=== PATIENT | female | born 1945 | race Caucasian/White ===

== ENCOUNTER 2018-02-27 04:05 | Emergency (ER) | payer MEDICARE ==
[2018-02-27] MEDS ORDERED: IPRATROPIUM/ALBUTEROL 0.5-2.5 MG/3 ML AMPUL NEB ONE (04:17)
--- NOTE | 2018-02-27 04:20 | ER Document Report ---
ED General - General Stated Complaint: SHORTNESS OF BREATH Time Seen by Provider: 02/27/18 04:16 Notes: Patient is a 72-year-old female who presents to the emergency department with a chief complaint of shortness of breath. She states that she developed shortness of breath today. She is a 3 pack a day smoker. According to her daughter, she does nothing but smoke and watch TV all day. When she developed shortness of breath this evening, they called to EMS, she was then taken to the hospital. EMS gave her albuterol and Atrovent for wheezing. The patient has a history of COPD. According to the patient's daughter, the patient has been smoking 3 packs a day of cigarettes nonstop for the past month. The patient states she does not plan on quitting. The patient also refuses to have an IV or labs drawn. - Related Data Allergies/Adverse Reactions: Penicillins Allergy (Verified 02/27/18 04:23) Sulfa (Sulfonamide Antibiotics) Allergy (Verified 02/27/18 04:23) Past Medical History - Social History Smoking Status: Current Every Day Smoker Frequency of alcohol use: None Drug Abuse: None Lives with: Family Family History: Reviewed & Not Pertinent Review of Systems - Review of Systems Notes: REVIEW OF SYSTEMS: CONSTITUTIONAL : Denies recent illness. Denies recent unintentional weight loss. Denies fever, chills, or sweats. EENT: Denies eye, ear, throat, or mouth pain, discharge, or symptoms. Denies nasal or sinus congestion. CARDIOVASCULAR: Denies chest pain. RESPIRATORY: See HPI GASTROINTESTINAL: Denies nausea, vomiting, and diarrhea. Denies abdominal pain. Denies constipation. GENITOURINARY: Denies difficulty urinating, burning, blood in urine, urgency or frequency. MUSCULOSKELETAL: Denies neck and back pain. Denies joint pain or swelling. SKIN: Denies rash, itchiness, or lesions HEMATOLOGIC : Denies easy bruising or bleeding. LYMPHATIC: Denies swollen, painful, enlarged glands. NEUROLOGICAL: Denies no numbness or tingling denies weakness. Denies headache. Denies altered mental status. Denies alteration in speech. PSYCHIATRIC: Denies stress, anxiety, alteration in sleep patterns, or depression. All other systems reviewed and negative. Physical Exam - Vital signs Vitals: Temp Pulse BP Pulse Ox 98.2 F 102 H 144/86 H 99 02/27/18 04:10 02/27/18 04:10 02/27/18 04:10 02/27/18 04:10 - Notes Notes: PHYSICAL EXAMINATION: GENERAL: Appears unkempt, smells of urine. HEAD: Normocephalic, atraumatic. EYES: PERRL, conjunctiva normal, all extraocular movements intact, sclera nonicteric ENT: Dry mucous membranes. NECK: Supple, no noticeable swelling, redness, rash. Normal range of motion. LUNGS: Equal breath sounds bilaterally and diminished to auscultation. Mild wheezes. No rales or rhonchi. CARDIOVASCULAR: S1-S2, regular rate, regular rhythm. Radial pulses 2+, normal. ABDOMEN: Normoactive bowel sounds. Soft, nontender, no guarding, no rebound tenderness, and no masses palpated. EXTREMITIES: Normal strength and range of motion, no pitting or edema. No cyanosis. NEUROLOGICAL: Moves all extremities upon command. Strength 5/5 in all extremities. PSYCH: Angry, non-cooperative. SKIN: Warm, dry. No rash, lesions, ulcerations noted. Normal skin turgor. Course - Re-evaluation Re-evalutation: 02/27/18 04:51 Patient's chest x-ray is normal at this time. The patient is very argumentative and not willing to cooperate. She was asked multiple times to place her breathing treatment in her mouth, and she began to argue saying that she did not want to. I have advised her that her workup will not be complete because she is refusing to have labs drawn and place an IV so she can receive additional medication. I also educated her multiple times in regards to smoking cessation, and she stated, "you do not think I have not heard that before." She also continued to state, "I am never going to quit smoking. And I am not going to be cutting back." Her daughter is the person who buys her cigarettes. Her daughter continues to state that the patient has sundowners and she sits in bed all day and smokes. I have advised her daughter that she needs to help her mother decrease the amount of cigarettes she smokes. Her daughter states, "if I do not buy my mother cigarettes, she will call the police and states she has been neglected and abused." The patient was taken off oxygen and her oxygen saturation was 94% on room air. I have advised both the patient and her daughter that she needs to see a primary care doctor to be placed back on her medications she was taking for COPD. The daughter is in agreement. Verbal discharge instructions were given to the patient. They verbalized understanding. They are stable for discharge. - Vital Signs Vital signs: Temp Pulse Resp BP Pulse Ox 98.2 F 102 H 144/86 H 99 02/27/18 04:10 02/27/18 04:10 02/27/18 04:10 02/27/18 04:10 Discharge - Discharge Clinical Impression: Difficulty breathing Condition: Stable Disposition: HOME, SELF-CARE Additional Instructions: You were seen today in the emergency department for difficulty breathing. Your difficulty breathing is caused by your smoking. Please either cut back on smoking or stop smoking altogether. Please see your primary care doctor to help you manage your health care. You have been given prednisone, a medication to help with your breathing. Please take the medication as prescribed. If you develop a fever greater than 100.4 F, have difficulty breathing again, or have any symptoms that are worrisome to you, please return to the emergency department. Prescriptions: Prednisone [Deltasone 20 mg Tablet] 3 tab PO DAILY 5 Days tablet
[2018-02-27 04:23] VITALS: BP 144/86
[2018-02-27] MEDS ORDERED: LIDOCAINE 2% INJ-PF (20 MG/ML) 10 ML AMPUL NEB ONE (04:36)
[2018-02-27] MEDS ORDERED: PREDNISONE 20 MG TABLET PO ONE (04:37)
--- NOTE | 2018-02-27 04:45 | RADIOLOGY REPORT (SQ) ---
EXAM DESCRIPTION: XR CHEST 1 VIEW COMPLETED DATE/TME: 02/27/2018 04:17 CLINICAL HISTORY: 72 years, Female, cough COMPARISON: None. NUMBER OF VIEWS: 1 TECHNIQUE: Upright chest LIMITATIONS: None. FINDINGS: The heart size is normal. Atheromatous change thoracic aorta. Osteopenia. No pneumothorax. Calcified granuloma right upper lobe. Lungs are otherwise clear IMPRESSION: No acute cardiopulmonary process copyright 2010 [employer]- All Rights Reserved
--- NOTE | 2018-02-27 06:52 | EKG REPORT ---
SEVERITY:- ABNORMAL ECG - SINUS TACHYCARDIA : Confirmed by: Mook Castillo 27-Feb-2018 06:51:51
== END 2018-02-27 05:25 | disposition home or self-care (01) ==
LOC: ER 04:05
DX: J44.9 Chronic obstructive pulmonary disease, unspecified (principal); R06.02 Shortness of breath; I49.1 Atrial premature depolarization; F17.210 Nicotine dependence, cigarettes, uncomplicated; Z88.0 Allergy status to penicillin; Z88.2 Allergy status to sulfonamides
CPT/HCPCS: 93005; 94640 ×2; 99285; 71045; 93010; A9270 ×2; J3490; J7512; J7620

== ENCOUNTER 2018-03-05 09:57 | Inpatient (IN) | payer MEDICARE ==
[2018-03-05] MEDS ORDERED: IPRATROPIUM/ALBUTEROL 0.5-2.5 MG/3 ML AMPUL NEB ONE ×4 (10:10→13:44)
[2018-03-05] MEDS ORDERED: METHYLPREDNISOLONE INJ 125 MG/2 ML SDV IV ONE (10:16)
--- NOTE | 2018-03-05 10:22 | ER Document Report ---
ED General - General Chief Complaint: Breathing Difficulty Stated Complaint: DIFFICULTY BREATHING Time Seen by Provider: 03/05/18 10:03 Mode of Arrival: Medic Information source: Patient, Emergency Med Personnel Notes: 72-year-old female brought to the emergency department by EMS for shortness of breath. Patient has a history of COPD. She is not on home oxygen. She denies having an inhaler or nebulizer at home. Patient states that she smokes 4 packs a day. She does not want to stop smoking. She states that she smoked a pack of cigarettes around midnight and that is when the shortness of breath started. Denies chest pain, nausea, vomiting, diaphoresis, fever, chills, productive coug h. EMS called. When they arrived they state that she was at 86% on room air. They placed her on 6 L nasal cannula and the patient's oxygen saturation went to 96%. History of hypertension but is not on medication. Denies DM, hyperlipidemia, CAD, family history of CAD. Denies recent travel, calf p ain/swelling, history of DVT/PE, history of hormone use, history of malignancy. TRAVEL OUTSIDE OF THE [place] IN LAST 30 DAYS: No - HPI Onset: Other - 10 hours prior to arrival. Onset/Duration: Sudden Quality of pain: No pain Severity: None Pain Level: Denies Associated symptoms: None Exacerbated by: Denies Relieved by: Denies Similar symptoms previously: Yes Recently seen / treated by doctor: No - Related Data Allergies/Adverse Reactions: Penicillins Allergy (Verified 03/05/18 10:09) Sulfa (Sulfonamide Antibiotics) Allergy (Verified 03/05/18 10:09) Past Medical History - General Information source: Patient - Social History Smoking Status: Current Every Day Smoker Family History: Reviewed & Not Pertinent Pulmonary Medical History: Reports: Hx COPD Renal/ Medical History: Denies: Hx Peritoneal Dialysis Review of Systems - Review of Systems Constitutional: No symptoms reported EENT: No symptoms reported Cardiovascular: No symptoms reported Respiratory: Short of breath, Wheezing Gastrointestinal: No symptoms reported Genitourinary: No symptoms reported Female Genitourinary: No symptoms reported Musculoskeletal: No symptoms reported Skin: No symptoms reported Hematologic/Lymphatic: No symptoms reported Neurological/Psychological: No symptoms reported -: Yes All other systems reviewed and negative Physical Exam - Vital signs Vitals: Temp Pulse Ox 97.8 F 100 03/05/18 10:03 03/05/18 10:03 - Notes Notes: PHYSICAL EXAMINATION: GENERAL: Well-appearing, well-nourished and in no acute distress. HEAD: Atraumatic, normocephalic. EYES: Pupils equal round and reactive to light, extraocular movements intact, conjunctiva are normal. ENT: Nares patent, oropharynx clear without exudates. Moist mucous membranes. NECK: Normal range of motion, supple without lymphadenopathy LUNGS: Faint wheezing appreciated in the lung bases. HEART: Regular rate and rhythm without murmurs ABDOMEN: Soft, nontender, nondistended abdomen. No guarding, no rebound. No masses appreciated. Female : deferred Musculoskeletal: Normal range of motion, no pitting or edema. No cyanosis. NEUROLOGICAL: Cranial nerves grossly intact. Normal speech, normal gait. Normal sensory, motor exams PSYCH: Normal mood, normal affect. SKIN: Warm, Dry, normal turgor, no rashes or lesions noted. Course - Re-evaluation Re-evalutation: 03/05/18 10:23 EKG: Ventricular rate 68, WA interval 168, QRS duration 96, QTc 473, sinus rhythm. No ST segment elevation or depression. 03/05/18 14:17 Patient has history of dementia per daughter. Patient being difficulty and refusing labs/imaging. Daughter came to the ED. Labs and imaging obtained. D- dimer elevated. CTA chest ordered. Troponin is negative. Patient's white blood cell count is 12.8. CT of the chest shows diffuse nodular infiltrates. Patient continues to sat around 88% on room air. She does not have any home oxygen, nebulizer machine, albuterol inhaler. She does not see a family physician. Patient is agreeable with admission. I spoke with the hospitalist, Dr. Sommers. He's agreeable with admission. Daughter denies any recent antibiotics or admissions. I started the patient on levofloxacin for the lung infiltrates. - Vital Signs Vital signs: Temp Pulse Resp BP Pulse Ox 98.5 F 87 26 H 163/99 H 90 L 03/05/18 13:33 03/05/18 13:33 03/05/18 13:33 03/05/18 13:33 03/05/18 14:00 - Laboratory Result Diagrams: 03/05/18 10:28 03/05/18 11:58 Laboratory results interpreted by me: 03/05/18 03/05/18 03/05/18 10:28 10:28 10:58 WBC 12.8 H RDW 15.0 H Plt Count 493 H Seg Neutrophils % 80.5 H Lymphocytes % 12.5 L Absolute Neutrophils 10.3 H D-Dimer 0.91 H Carbonic Acid 1.38 H ABG pCO2 46.0 H ABG pO2 68.7 L ABG HCO3 28.3 H ABG Total CO2 29.7 H ABG O2 Saturation 93.8 L Glucose 03/05/18 11:58 WBC RDW Plt Count Seg Neutrophils % Lymphocytes % Absolute Neutrophils D-Dimer Carbonic Acid ABG pCO2 ABG pO2 ABG HCO3 ABG Total CO2 ABG O2 Saturation Glucose 146 H Discharge - Discharge Clinical Impression: COPD (chronic obstructive pulmonary disease) Qualifiers: COPD type: unspecified COPD Qualified Code(s): J44.9 - Chronic obstructive pulmonary disease, unspecified Pneumonia Qualifiers: Pneumonia type: due to unspecified organism Laterality: unspecified laterality Lung location: unspecified part of lung Qualified Code(s): J18.9 - Pneumonia, unspecified organism Condition: Good Disposition: ADMITTED OBSERVATION Admitting Provider: Hospitalist Unit Admitted: Telemetry
[2018-03-05 10:55] LABS: ABSOLUTE BASOPHILS # (AUTO) 0.1 10^3/uL (0.0-0.2); ABSOLUTE EOSINOPHILS # (AUTO) 0.1 10^3/uL (0.0-0.6); ABSOLUTE LYMPHOCYTES (AUTO) 1.6 10^3/uL (0.5-4.7); ABSOLUTE MONOCYTES (AUTO) 0.7 10^3/uL (0.1-1.4); ABSOLUTE NEUT (AUTO) 10.3 10^3/uL (1.7-8.2); BASOPHILS % (AUTO) 0.8 % (0-2); EOSINOPHILS % (AUTO) 0.6 % (0-6); HEMATOCRIT 40.6 % (36.0-47.0); HEMOGLOBIN 13.7 g/dL (12.0-15.5); LYMPHOCYTES % (AUTO) 12.5 % (13-45); MEAN CORPUSCULAR HEMOGLOBIN 28.4 pg (27.0-33.4); MEAN CORPUSCULAR HGB CONC 33.8 g/dL (32.0-36.0); MEAN CORPUSCULAR VOLUME 84 fl (80-97); MONOCYTES % (AUTO) 5.6 % (3-13); PLATELET COUNT 493 10^3/uL (150-450); RED BLOOD COUNT 4.84 10^6/uL (3.72-5.28); SEGMENTED NEUTROPHILS % (AUTO) 80.5 % (42-78); TOTAL CELLS COUNTED % (AUTO) 100 %; WHITE BLOOD COUNT 12.8 10^3/uL (4.0-10.5)
--- NOTE | 2018-03-05 11:05 | RADIOLOGY REPORT (SQ) ---
EXAM DESCRIPTION: CHEST SINGLE VIEW COMPLETED DATE/TIME: 03/05/2018 10:50 am REASON FOR STUDY: shortness of breath COMPARISON: 02/27/2018. EXAM PARAMETERS: NUMBER OF VIEWS: One view. TECHNIQUE: Single frontal radiographic view of the chest acquired. RADIATION DOSE: NA LIMITATIONS: None. FINDINGS: LUNGS AND PLEURA: Prominence of interstitial markings in lung base suggest chronic interst itial change. MEDIASTINUM AND HILAR STRUCTURES: No masses. Contour normal. HEART AND VASCULAR STRUCTURES: Normal heart size and aortic atherosclerosis. BONES: No acute findings. HARDWARE: None in the chest. OTHER: No other significant finding. IMPRESSION: NO ACUTE DISEASE. TECHNICAL DOCUMENTATION: JOB ID: [id number] SC-[id number] 2010 [employer]- All Rights Reserved Reading location - IP/workstation name: [email or web address]
[2018-03-05 11:20] LABS: ARTERIAL BLOOD H2CO3 1.38 mmol/L (1.05-1.35); ARTERIAL BLOOD HCO3 28.3 mmol/L (20-24); ARTERIAL BLOOD O2 SATURATION 93.8 % (94-98); ARTERIAL BLOOD PH 7.41 (7.35-7.45); ARTERIAL BLOOD PO2 68.7 mmHg (80-100); ARTERIAL BLOOD TOTAL CO2 29.7 mmol/L (21-25)
[2018-03-05 11:21] LABS: ARTERIAL BLOOD FIO2 4L
[2018-03-05 12:36] LABS: ALANINE AMINOTRANSFERASE 22 U/L (9-52); ALBUMIN 3.8 g/dL (3.5-5.0); ALKALINE PHOSPHATASE 100 U/L (38-126); ANION GAP 9 (5-19); ASPARTATE AMINO TRANSFERASE 19 U/L (14-36); BILIRUBIN,DIRECT 0.3 mg/dL (0.0-0.4); BILIRUBIN,TOTAL 0.5 mg/dL (0.2-1.3); BLOOD UREA NITROGEN 9 mg/dL (7-20); CALCIUM 9.5 mg/dL (8.4-10.2); CARBON DIOXIDE 28 mmol/L (22-30); CHLORIDE 103 mmol/L (98-107); GLUCOSE 146 mg/dL (75-110); SODIUM 139.8 mmol/L (137-145); TOTAL PROTEIN 6.5 g/dL (6.3-8.2)
--- NOTE | 2018-03-05 12:46 | EKG REPORT ---
SEVERITY:- BORDERLINE ECG - SINUS RHYTHM PROBABLE LEFT ATRIAL ABNORMALITY : Confirmed by: Delilah Parker MD 05-Mar-2018 12:44:44
[2018-03-05] MEDS ORDERED: LORAZEPAM INJ 2 MG/1 ML VIAL IV ONE (12:54)
[2018-03-05] MEDS ORDERED: LORAZEPAM INJ 2 MG/1 ML VIAL ONE (12:55)
--- NOTE | 2018-03-05 13:32 | RADIOLOGY REPORT (SQ) ---
EXAM DESCRIPTION: CTA CHEST COMPLETED DATE/TIME: 03/05/2018 1:06 pm REASON FOR STUDY: shortness of breath COMPARISON: Radiographs same date. TECHNIQUE: CT scan of the chest performed using helical scanning technique with dynamic intravenous contrast injection. Images reviewed with lung, soft tissue and bone windows. Reconstructed coronal and sagittal MPR images reviewed. Additional 3 dimensional post-processing performed to develop Maximal Intensity Projection images (NC P). All images stored on PACS. All CT scanners at this facility use dose modulation, iterative reconstruction, and/or weight based d osing when appropriate to reduce radiation dose to as low as reasonably achievable (ALARA). [facility]: Dose Right [facility]: CareDose [facility]: Dose Right [facility]: Teradose 4D [facility]: [employer] CONTRAST TYPE AND DOSE: contrast/concentration: Isovue 350.00 mg/ml; Total Contrast Delivered: 76.0 ml; Total Saline Delivered: 110.0 ml Contrast bolus optimized for the pulmonary arteries. Not diagnostic for the aorta. RENAL FUNCTION: Within acceptable limits. RADIATION DOSE: CT Rad equipment meets quality standard of care and radiation dose reduction techniq ues were employed. CTDIvol: 23.5 - 29.8 mGy. DLP: 920 mGy-cm. . LIMITATIONS: None. FINDINGS: LUNGS AND PLEURA: Mild areas of subsegmental atelectasis/ scar in the lingula and dependen t bilateral lower lobes. Trace pleural fluid. Faint nodular infiltrates in the lungs, most notable in the right upper lobe peripherally. Nodules measure 3 mm or less. AORTA AND GREAT VESSELS: Poorly assessed. Atherosclerotic without gross aneurysm. HEART: Cardiac enlargement without pericardial effusion. At least moderate coronary calcification. PULMONARY ARTERIES: No emboli visualized in the main pulmonary arteries or the segmental branches. HILAR AND MEDIASTINAL STRUCTURES: Small nodes without bulky adenopathy or clearly abnormally enlarged nodes. HARDWARE: None in the chest. UPPER ABDOMEN: 3.5 cm well-circumscribed left adrenal mass. Low Hounsfield units (below 10) suggesti ve of adenoma. There is also a small 1.4 cm right adrenal nodule. Hounsfield units are in the 30s, this lesion is indeterminate. THYROID AND OTHER SOFT TISSUES: No masses. No adenopathy. BONES: No acute or significant finding. 3D MIPS: Confirm above findings. OTHER: No other significant finding. IMPRESSION: 1. No pulmonary embolus. 2. Mild faint nodular infiltrates in the lungs, acuity and significance indeterminate. Followup imag ing over time may be warranted. This may represent atypical infection. 3. Adrenal masses. Left is probably an adenoma. Right is indeterminate. Non urgent follow-up dedic ated adrenal MRI may prove helpful. 4. Cardiomegaly. Trace pleural fluid. Pronounced Coronary calcification. COMMENT: Quality ID # [id number]: Final reports with documentation of one or more dose reduction techniques (e.g., Automated exposure control, adjustment of the mA and/or kV according to patient size, use of iterative reconstruction technique) TECHNICAL DOCUMENTATION: JOB ID: [id number] [employer]- All Rights Reserved Reading location - IP/workstation name: [email or web address]
[2018-03-05] MEDS ORDERED: LEVOFLOXACIN 750 MG/D5W RTU 750 MG/150 ML RTUPB IV ONE (13:47)
[2018-03-05] MEDS ORDERED: ACETAMINOPHEN 325 MG TABLET PO PRN (14:42)
[2018-03-05] MEDS ORDERED: ONDANSETRON HCL INJ/PF 4 MG/2 ML SDV IV PRN (14:42)
--- NOTE | 2018-03-05 14:42 | PDOC H&P ---
History of Present Illness History of Present Illness: BILL FERNANDEZ is a 72 year old female patient brought by her daughter with chief complaint of difficulty breathing and shortness of breath. It was a patient carries a diagnosis of COPD she has not been on any inhaler or nebulizer. Patient is a very heavy smoker and she smokes about 4 packs a day. When EMS seen her patient was hypoxic with O2 saturation of 86% and they put her on 6 L of oxygen and her O2 saturation picked up to 96. Her chest x-ray is negative but her CT scan reported as mild faint nodular infiltrates in the lungs, acuity and significance indeterminate. Patient has also renal masses and cardiomegaly. There is no report of fever, chills, chest pain, palpitation or diaphoresis she has mild dry cough. Past Medical History Cardiac Medical History: Reports: Hypertension Pulmonary Medical History: Reports: Chronic Obstructive Pulmonary Disease (COPD) Social History Smoking Status: Current Every Day Smoker - Advance Directive Resuscitation Status: Full Code Family History Family History: Reviewed & Not Pertinent Parental Family History Reviewed: Yes Children Family History Reviewed: Yes Sibling(s) Family History Reviewed.: Yes Medication/Allergy Home Medications: Prednisone [Deltasone 20 mg Tablet] 3 tab PO DAILY 5 Days tablet 02/27/18 Allergies/Adverse Reactions: Penicillins Allergy (Verified 03/05/18 10:09) Sulfa (Sulfonamide Antibiotics) Allergy (Verified 03/05/18 10:09) Review of Systems Constitutional: PRESENT: as per HPI Eyes: PRESENT: as per HPI Cardiovascular: PRESENT: as per HPI Respiratory: PRESENT: as per HPI Gastrointestinal: PRESENT: as per HPI Neurological: PRESENT: as per HPI Psychiatric: PRESENT: as per HPI Physical Exam Vital Signs: Temp Pulse Resp BP Pulse Ox 98.5 F 87 26 H 163/99 H 90 L 03/05/18 13:33 03/05/18 13:33 03/05/18 13:33 03/05/18 13:33 03/05/18 14:00 Intake & Output 03/04/18 03/05/18 03/06/18 06:59 06:59 06:59 Weight 81.647 kg General appearance: PRESENT: mild distress, obese Head exam: PRESENT: atraumatic, normocephalic Eye exam: PRESENT: conjunctiva pink Neck exam: ABSENT: carotid bruit, JVD, lymphadenopathy, thyromegaly Respiratory exam: PRESENT: crackles, wheezes Cardiovascular exam: PRESENT: RRR. ABSENT: diastolic murmur, rubs, systolic murmur GI/Abdominal exam: PRESENT: normal bowel sounds, soft. ABSENT: distended, guarding, mass, organolmegaly, rebound, tenderness Results Laboratory Results: 03/05/18 10:28 03/05/18 11:58 03/05/18 03/05/18 03/05/18 10:28 10:28 10:58 WBC 12.8 H RBC 4.84 Hgb 13.7 Hct 40.6 MCV 84 MCH 28.4 MCHC 33.8 RDW 15.0 H Plt Count 493 H Seg Neutrophils % 80.5 H Lymphocytes % 12.5 L Monocytes % 5.6 Eosinophils % 0.6 Basophils % 0.8 Absolute Neutrophils 10.3 H Absolute Lymphocytes 1.6 Absolute Monocytes 0.7 Absolute Eosinophils 0.1 Absolute Basophils 0.1 Carbonic Acid 1.38 H HCO3/H2CO3 Ratio 20:1 ABG pH 7.41 ABG pCO2 46.0 H ABG pO2 68.7 L ABG HCO3 28.3 H ABG O2 Saturation 93.8 L ABG Base Excess 3.0 FiO2 4L Sodium Cancelled Potassium Cancelled Chloride Cancelled Carbon Dioxide Cancelled Anion Gap Cancelled BUN Cancelled Creatinine Cancelled Est GFR ( Amer) Cancelled Est GFR (Non-Af Amer) Cancelled Glucose Cancelled Calcium Cancelled Total Bilirubin Cancelled AST Cancelled ALT Cancelled Alkaline Phosphatase Cancelled Total Protein Cancelled Albumin Cancelled 03/05/18 11:58 WBC RBC Hgb Hct MCV MCH MCHC RDW Plt Count Seg Neutrophils % Lymphocytes % Monocytes % Eosinophils % Basophils % Absolute Neutrophils Absolute Lymphocytes Absolute Monocytes Absolute Eosinophils Absolute Basophils Carbonic Acid HCO3/H2CO3 Ratio ABG pH ABG pCO2 ABG pO2 ABG HCO3 ABG O2 Saturation ABG Base Excess FiO2 Sodium 139.8 Potassium 4.0 Chloride 103 Carbon Dioxide 28 Anion Gap 9 BUN 9 Creatinine 0.61 Est GFR ( Amer) > 60 Est GFR (Non-Af Amer) > 60 Glucose 146 H Calcium 9.5 Total Bilirubin 0.5 AST 19 ALT 22 Alkaline Phosphatase 100 Total Protein 6.5 Albumin 3.8 03/05/18 03/05/18 10:28 11:58 Troponin I Cancelled < 0.012 Impressions: Chest X-Ray 03/05/18 10:16 IMPRESSION: NO ACUTE DISEASE. Chest/Abdomen CTA 03/05/18 11:21 IMPRESSION: 1. No pulmonary embolus. 2. Mild faint nodular infiltrates in the lungs, acuity and significance indeterminate. Followup imaging over time may be warranted. This may represent atypical infection. 3. Adrenal masses. Left is probably an adenoma. Right is indeterminate. Non urgent follow-up dedicated adrenal MRI may prove helpful. 4. Cardiomegaly. Trace pleural fluid. Pronounced Coronary calcification. Assessment & Plan - Diagnosis (1) Acute hypoxemic respiratory failure Is this a current diagnosis for this admission?: Yes Plan: We will put her on supplemental oxygen and intermittent BiPAP. (2) Pneumonia Qualifiers: Laterality: bilateral Is this a current diagnosis for this admission?: Yes Plan: CT scan of the lung revealed bilateral faint infiltrates and radiologist abraham ggested this may represent a typical infection. Patient has been started on Levaquin. (3) Acute exacerbation of chronic obstructive airways disease Is this a current diagnosis for this admission?: Yes Plan: Patient has been started on DuoNeb, supplemental oxygen, Solu-Medrol and antibiotics. (4) Current everyday smoker Is this a current diagnosis for this admission?: Yes Plan: Patient smokes 4 packs a day. She is advised to quit. Nicotine patch (5) Hypertension Qualifiers: Hypertension type: essential hypertension Qualified Code(s): I10 - Essential (primary) hypertension Is this a current diagnosis for this admission?: Yes Plan: Continue home medication (6) Obesity (BMI 30.0-34.9) Is this a current diagnosis for this admission?: Yes Plan: Lifestyle modification advised
[2018-03-05] MEDS ORDERED: NICOTINE 21 MG/24 HR PATCH.TD24 TD PRN (14:48)
[2018-03-05] MEDS ORDERED: GUAIFENESIN 600 MG TABLET.SA PO ONE (14:53)
[2018-03-05] MEDS ORDERED: LEVOFLOXACIN 750 MG/D5W RTU 750 MG/150 ML RTUPB IV SCH (15:00)
[2018-03-05] MEDS ORDERED: ENOXAPARIN SODIUM INJ 40 MG/0.4 ML DISP.SYRIN SUBCUT SCH (15:00)
[2018-03-05] MEDS ORDERED: IPRATROPIUM/ALBUTEROL 0.5-2.5 MG/3 ML AMPUL NEB SCH (20:00)
[2018-03-05 21:15] VITALS: BP 140/69
[2018-03-05] MEDS ORDERED: METHYLPREDNISOLONE INJ 125 MG/2 ML SDV IV SCH (22:00)
[2018-03-05] MEDS ORDERED: GUAIFENESIN 600 MG TABLET.SA PO SCH (22:00)
[2018-03-05] MEDS ORDERED: FAMOTIDINE 20 MG TABLET PO SCH (22:00)
--- NOTE | 2018-03-06 07:54 | Progress Note ---
Provider Note Provider Note: BILL FERNANDEZ is a 72 year old female patient brought by her daughter with chief complaint of difficulty breathing and shortness of breath. It was a patient carries a diagnosis of COPD she has not been on any inhaler or nebulizer. Patient has hypoxia with O2 saturation of 86%. She is admitted with impression of acute hypoxemic respiratory failure secondary to COPD exacerbation and has been started on supplemental oxygen, steroid and bronchodilators. Last night patient refused her medications and made herself AMA. Per nursing notes,pt decided that she wanted to leave ama after conversation with last nursing shift and myself. pt repeatedly screaming down the halls for coffee, cheeseburgers, cigarettes, and to go home. pt was advised on multiple occasions that smoking was not allowed, and she stated that she wanted to leave and go home so she could smoke. The daughter was called on 2 occasions by myself per patient request, and the daughter spoke to the patient about staying to finish treatment. The daughter stated that she "could not deal with her anymore, and wanted us to give her a nother chance to behave". I told the daughter that the patient wanted to leave ama, and that we could not hold her. I advised her that it was not based on her behavior. The patient was alert x3 and continuously reoriented to the quiet rules, food times, availability of food, and the use of a call singh. Dr. Alonso was called to alert him of the violent threats to myself, the consistent screaming down the hallway for specific food demands/cigarettes/outbursts, and refusal to wear monitors or stay in bed. Dr. Alonso advised me that the patient is alert and oriented and that she can leave if she wants. The pt had one iv antibiotic left for in the morning. Security was called to be present during the ama process due to verbal outbursts and threats against myself. Pt had her iv removed and the ama process was explained in front of the charge nurse and security. Her signature was obtained after she verbalized understanding. The house supervised was informed. Me, Sparkle, and security walked her to the lobby where we waited for her daughter to arrive. Pt stated that she just wanted a cigarette multiple times on the way down. After being cooperative on the trip down, the patient stated that she "was going to come back and kick my ass." security informed her not to threaten staff. She then proceeded to tell me that she had a cell phone and cigarettes and that I stole them. I informed her that she was using the hospital phone during the night, and that I thoroughly looked for her belongings before leaving. Sparkle then went back to double check, where no phone or other belongings were found. The daughter arrived at 2250 in a personal vehicle. When she pulled up and was asked are you Alyssa, she stated "yeah who else would I be". The patient then ambulated to the vehicle without assistance or sign of distress. The daughter asked where the patient's discharge paperwork, prescriptions, and oxygen were. I reminded the daughter that she left AMA, so prescriptions and paperwork are not given. She stated "well thanks for nothing" and they proceeded to drive off the property.
[2018-03-06] MEDS ORDERED: DOCUSATE SODIUM 100 MG CAPSULE PO SCH (10:00)
== END 2018-03-05 22:33 | disposition left against medical advice (07) | DRG 189 ==
LOC: ER 09:57 → EH 14:27 → OBSVTOIN 14:43 → 3W 16:02
PROVIDERS: ADMIT Internal Medicine; ATTEND Internal Medicine
DX: J96.01 Acute respiratory failure with hypoxia (principal); J18.9 Pneumonia, unspecified organism; J44.0 Chronic obstructive pulmonary disease with (acute) lower respiratory infection; J44.1 Chronic obstructive pulmonary disease with (acute) exacerbation; F17.210 Nicotine dependence, cigarettes, uncomplicated; I10 Essential (primary) hypertension; Z88.2 Allergy status to sulfonamides; Z88.0 Allergy status to penicillin; E66.9 Obesity, unspecified
CPT/HCPCS: 36415; 71045; 71275; 80053; 82803; 84484; 85025; 85379; 87040; 93005; 93010; 99285; J1956; J2060; J2930; J7620

== ENCOUNTER 2018-03-07 07:30 | Inpatient (IN) | payer MEDICARE ==
--- NOTE | 2018-03-07 07:35 | ER Document Report ---
ED General - General Stated Complaint: SHORTNESS OF BREATH Time Seen by Provider: 03/07/18 07:34 Notes: Patient is a 72-year-old female with COPD that presents to the emergency department for chief complaint of shortness of breath. Patient states that she was at home, and got progressively worse and more short of breath, to the point where she called EMS, per EMS records she was 80% on room air, provided supplemental oxygen which brought her up to the mid 90s, she has had a productive cough over the last few days as well, she was admitted to the hospital for the same symptoms, on the sixth of this month, but left AGAINST MEDICAL ADVICE, which she states was because she did not get her coffee. She states that she is willing to be readmitted to the hospital because she is feeling progressively more short of breath, she denies any associated chest pain, fevers, chills, night sweats, nausea, vomiting or abdominal pain. She denies any use of inhalers, states she ran out of them, she has not seen physicians in a long time. Past Medical History: COPD Past Surgical History: Cholecystectomy, hysterectomy Social History: Admits to smoking cigarettes daily, denies alcohol or drug use. Family History: Reviewed and noncontributory for presenting illness Allergies: Reviewed, see documented allergy list. REVIEW OF SYSTEMS: Other than noted above, the 12 point review of systems was reviewed with the patient and were negative, all pertinent findings are included in the HPI. PHYSICAL EXAMINATION: Vital signs reviewed, nursing noted reviewed. GENERAL: Elderly female, in mild respiratory distress HEAD: Atraumatic, normocephalic. EYES: Eyes appear normal, extraocular movements intact, sclera anicteric, conjunctiva are normal. ENT: nares patent, oropharynx clear without exudates. Moist mucous membranes. NECK: Normal range of motion, supple without lymphadenopathy LUNGS: Coarse lung sounds, diffuse wheezing noted throughout all lung wilkinson, d iminished air movement. Mild respiratory distress, with conversational dyspnea HEART: Regular rate and rhythm without murmurs ABDOMEN: Soft, nontender, normoactive bowel sounds. No rebound, guarding, or rigidity. No masses appreciated. EXTREMITIES: Nontender, good range of motion, no pitting or edema. NEUROLOGICAL: No focal neurological deficits. Moves all extremities spontaneously Motor and sensory grossly intact on exam. PSYCH: Agitated at times SKIN: Warm, Dry, normal turgor, no rashes or lesions noted on exposed skin TRAVEL OUTSIDE OF THE [place] IN LAST 30 DAYS: No - Related Data Allergies/Adverse Reactions: Penicillins Allergy (Verified 03/05/18 10:09) Sulfa (Sulfonamide Antibiotics) Allergy (Verified 03/05/18 10:09) Past Medical History - Social History Smoking Status: Current Every Day Smoker Family History: Reviewed & Not Pertinent - Past Medical History Cardiac Medical History: Reports: Hx Hypertension Pulmonary Medical History: Reports: Hx COPD Renal/ Medical History: Denies: Hx Peritoneal Dialysis Physical Exam - Vital signs Vitals: Temp 97.8 F 03/07/18 07:47 Course - Re-evaluation Re-evalutation: Patient seen and examined, vital signs reviewed, patient was noted to be hypoxic at 80% on room air by EMS, was placed on supplemental oxygen by 2 L and improved to the mid 90s, patient was having some increased work of breathing, and conversational dyspnea, but that seemed to improve over her ED course, her chest x-ray was unchanged from prior from 2 days ago, patient was noted to leave AMA in the hospital on her recent admission on the sixth, because she wanted coffee, and apparently was screaming at staff, and then left AGAINST MEDICAL ADVICE, her blood work was pending, and she was aggressively addressing nurses, asking for coffee again, I discussed with her, that we did not have coffee in the emergency department, and am waiting to have her blood work back to admit her to the hospital, and that she would need to wait before having any coffee, or she could have water at this time, patient adamantly stated she is addicted to coffee, and needs it now or she is leaving AGAINST MEDICAL ADVICE, I spent over 10 minutes with her in her room, trying to dissuade her otherwise, but she persistently stated that she wanted to leave and get coffee and that she could not wait any longer. I discussed with her, that she would likely from hypoxemia, if she left the hospital, patient stated that I was a "psychopath" and that she is leaving the hospital. Nursing was able to obtain a couple coffee for the patient, which calmed her down, and she stated that she would stay at this point, to be treated for her COPD exacerbation. She was more appropriate, and reasonable at this time. She has received DuoNeb breathing treatments, and Solu-Medrol IV. Case discussed with Dr. Zavala with the hospitalist group, who graciously sent with the patient under his service, for further evaluation and management, patient was agreeable. Laboratory 03/07/18 03/07/18 03/07/18 09:10 09:10 09:10 WBC 16.1 H RBC 4.67 Hgb 13.3 Hct 39.4 MCV 84 MCH 28.4 MCHC 33.7 RDW 15.3 H Plt Count 519 H Seg Neutrophils % 76.2 Lymphocytes % 17.3 Monocytes % 5.6 Eosinophils % 0.6 Basophils % 0.3 Absolute Neutrophils 12.3 H Absolute Lymphocytes 2.8 Absolute Monocytes 0.9 Absolute Eosinophils 0.1 Absolute Basophils 0.0 Sodium 140.6 Potassium 4.3 Chloride 105 Carbon Dioxide 28 Anion Gap 8 BUN 15 Creatinine 0.70 Est GFR ( Amer) > 60 Est GFR (Non-Af Amer) > 60 Glucose 119 H Calcium 9.2 Total Bilirubin 0.2 Direct Bilirubin 0.2 Neonat Total Bilirubin Not Reportable Neonat Direct Bilirubin Not Reportable Neonat Indirect Bili Not Reportable AST 19 ALT 25 Alkaline Phosphatase 82 Troponin I < 0.012 Total Protein 5.7 L Albumin 3.3 L Chest X-Ray 03/07/18 07:50 IMPRESSION: 1. Stable examination since the prior study dated 03/05/2018. No acute findings. - Vital Signs Vital signs: Temp Pulse Resp BP Pulse Ox 97.8 F 96 03/07/18 07:47 03/07/18 07:50 - Laboratory Result Diagrams: 03/07/18 09:10 03/07/18 09:10 Laboratory results interpreted by me: 03/07/18 03/07/18 09:10 09:10 WBC 16.1 H RDW 15.3 H Plt Count 519 H Absolute Neutrophils 12.3 H Glucose 119 H Total Protein 5.7 L Albumin 3.3 L - EKG Interpretation by Me Additional EKG results interpreted by me: EKG demonstrates sinus bradycardia with a ventricular rate of 57 bpm, normal axis, normal intervals, no evidence of acute ischemia in this EKG, this is compared with prior EKG from 03/05/2018, without significant change. Discharge - Discharge Clinical Impression: COPD with acute exacerbation, Hypoxia Condition: Stable Disposition: ADMITTED INPATIENT Admitting Provider: Hospitalist - Dr. Zavala Unit Admitted: Telemetry Additional Instructions: You are leaving AGAINST MEDICAL ADVICE, we encourage you to back to the emergency department as soon as possible to treat your lung condition. This is a life-threatening condition, that if not treated properly, will worsen, and will likely be fatal, as your oxygen levels may continue to drop. Referrals: SOULEYMANE AIKEN MD [COMMUNITY BASED STAFF] - Follow up tomorrow
[2018-03-07] MEDS ORDERED: IPRATROPIUM/ALBUTEROL 0.5-2.5 MG/3 ML AMPUL NEB ONE (07:55)
[2018-03-07] MEDS ORDERED: METHYLPREDNISOLONE INJ 125 MG/2 ML SDV IV ONE (07:56)
--- NOTE | 2018-03-07 08:20 | RADIOLOGY REPORT (SQ) ---
EXAM DESCRIPTION: CHEST SINGLE VIEW COMPLETED DATE/TIME: 03/07/2018 8:01 am REASON FOR STUDY: short of breath COMPARISON: 03/05/2018 EXAM PARAMETERS: NUMBER OF VIEWS: One view. TECHNIQUE: Single frontal radiographic view of the chest acquired. RADIATION DOSE: NA LIMITATIONS: None. FINDINGS: LUNGS AND PLEURA: No opacities, masses or pneumothorax. No pleural effusion. Small stable calcified granuloma right apex of the lung. MEDIASTINUM AND HILAR STRUCTURES: No masses. Contour normal. HEART AND VASCULAR STRUCTURES: Borderline cardiomegaly, stable finding. No evidence for failure. BONES: No acute findings. HARDWARE: None in the chest. OTHER: No other significant finding. IMPRESSION: 1. Stable examination since the prior study dated 03/05/2018. No acute findings. TECHNICAL DOCUMENTATION: JOB ID: [id number] [employer]- All Rights Reserved Reading location - IP/workstation name: [email or web address]
[2018-03-07 09:34] LABS: ABSOLUTE EOSINOPHILS # (AUTO) 0.1 10^3/uL (0.0-0.6); ABSOLUTE LYMPHOCYTES (AUTO) 2.8 10^3/uL (0.5-4.7); ABSOLUTE MONOCYTES (AUTO) 0.9 10^3/uL (0.1-1.4); ABSOLUTE NEUT (AUTO) 12.3 10^3/uL (1.7-8.2); BASOPHILS % (AUTO) 0.3 % (0-2); EOSINOPHILS % (AUTO) 0.6 % (0-6); HEMATOCRIT 39.4 % (36.0-47.0); HEMOGLOBIN 13.3 g/dL (12.0-15.5); LYMPHOCYTES % (AUTO) 17.3 % (13-45); MEAN CORPUSCULAR HEMOGLOBIN 28.4 pg (27.0-33.4); MEAN CORPUSCULAR HGB CONC 33.7 g/dL (32.0-36.0); MEAN CORPUSCULAR VOLUME 84 fl (80-97); MONOCYTES % (AUTO) 5.6 % (3-13); PLATELET COUNT 519 10^3/uL (150-450); RED BLOOD COUNT 4.67 10^6/uL (3.72-5.28); RED CELL DISTRIBUTION WIDTH 15.3 % (11.5-14.0); SEGMENTED NEUTROPHILS % (AUTO) 76.2 % (42-78); TOTAL CELLS COUNTED % (AUTO) 100 %; WHITE BLOOD COUNT 16.1 10^3/uL (4.0-10.5)
[2018-03-07 09:58] LABS: ALANINE AMINOTRANSFERASE 25 U/L (9-52); ALBUMIN 3.3 g/dL (3.5-5.0); ALKALINE PHOSPHATASE 82 U/L (38-126); ANION GAP 8 (5-19); ASPARTATE AMINO TRANSFERASE 19 U/L (14-36); BILIRUBIN,DIRECT 0.2 mg/dL (0.0-0.4); BILIRUBIN,TOTAL 0.2 mg/dL (0.2-1.3); BLOOD UREA NITROGEN 15 mg/dL (7-20); CALCIUM 9.2 mg/dL (8.4-10.2); CARBON DIOXIDE 28 mmol/L (22-30); CHLORIDE 105 mmol/L (98-107); GLUCOSE 119 mg/dL (75-110); POTASSIUM 4.3 mmol/L (3.6-5.0); SODIUM 140.6 mmol/L (137-145); TOTAL PROTEIN 5.7 g/dL (6.3-8.2)
[2018-03-07] MEDS ORDERED: NICOTINE 21 MG/24 HR PATCH.TD24 TD ONE (10:21)
[2018-03-07] MEDS ORDERED: HALOPERIDOL LACTATE INJ 5 MG/1 ML VIAL IM ONE (11:10)
[2018-03-07] MEDS ORDERED: ZIPRASIDONE MESYLATE INJ/PF 20 MG SDV IM ONE (11:33)
--- NOTE | 2018-03-07 12:59 | EKG REPORT ---
SEVERITY:- BORDERLINE ECG - SINUS RHYTHM BORDERLINE R WAVE PROGRESSION, ANTERIOR LEADS : Confirmed by: Jose Miguel Carrillo MD 07-Mar-2018 12:58:49
[2018-03-07 13:45] LABS: ARTERIAL BLOOD BASE EXCESS -0.1 mmol/L; ARTERIAL BLOOD H2CO3 1.23 mmol/L (1.05-1.35); ARTERIAL BLOOD HCO3 24.6 mmol/L (20-24); ARTERIAL BLOOD O2 SATURATION 93.1 % (94-98); ARTERIAL BLOOD PCO2 40.7 mmHg (35-45); ARTERIAL BLOOD PO2 66.1 mmHg (80-100); ARTERIAL BLOOD TOTAL CO2 25.9 mmol/L (21-25)
[2018-03-07 13:46] LABS: ARTERIAL BLOOD FIO2 ROOM AIR
[2018-03-07] MEDS: HEPARIN SOD (PORCINE) 5,000 UNIT/ML 1 ML SYRINGE SUBCUT SCH ×2 (14:24→23:18)
--- NOTE | 2018-03-07 18:37 | PDOC H&P ---
History of Present Illness Admission Date/PCP: 03/07/18 10:41 History of Present Illness: BILL FERNANDEZ is a 72 year old female who left from this facility AGAINST MEDICAL ADVICE yesterday after having been admitted for an acute exacerbation of COPD. Today she was apparently brought in by her daughter who was not in the room whenever I came to see the patient. The patient says that she started getting short of breath last night when she was hanging some curtains, and then she sat down and smoked a cigarette and drank a cup of coffee and began to feel better. She is not quite sure how she got here this morning or why she is here. The ER provider told me that she looked pretty bad when she first came in, and was visibly short of breath, and got some steroids and nebulizer treatment and her symptoms improved. Apparently she was hypoxic when she first came in but when I saw her she was on room air and speaking in complete sentences sitting up on the side of the bed and talking to someone on the telephone, or at least that is what she made it appears she was doing. She would not let anyone put a pulse oximeter or a pvc monitor on her. I asked her if she had been in the hospital recently and she said no. I asked her again later on if she had been in the hospital in the past couple of weeks and she said no. Patient came here, according to our records, on February 27, and then came back in a few days later when she was admitted for COPD exacerbation. Past Medical History Cardiac Medical History: Reports: Hypertension Pulmonary Medical History: Reports: Chronic Obstructive Pulmonary Disease (COPD) Social History Smoking Status: Current Every Day Smoker Frequency of Alcohol Use: None Hx Recreational Drug Use: No Drugs: None Hx Prescription Drug Abuse: No Family History Family History: Reviewed & Not Pertinent Parental Family History Reviewed: No - Patient could not remember Children Family History Reviewed: No - Patient did not recall anything Sibling(s) Family History Reviewed.: No - Noncontributory Medication/Allergy Home Medications: No Home Medications 03/07/18 Allergies/Adverse Reactions: Penicillins Allergy (Verified 03/05/18 10:09) Sulfa (Sulfonamide Antibiotics) Allergy (Verified 03/05/18 10:09) Review of Systems All systems: reviewed and no additional remarkable complaints except as stated - 10 point review of systems was conducted with the patient was negative except as noted above, but the reliability of it is somewhat suspect Physical Exam Vital Signs: Temp Pulse Resp BP Pulse Ox 97.8 F 84 19 144/68 H 93 03/07/18 07:47 03/07/18 11:19 03/07/18 16:03 03/07/18 16:03 03/07/18 16:03 Intake & Output 03/06/18 03/07/18 03/08/18 06:59 06:59 06:59 Weight 97.1 kg General appearance: PRESENT: no acute distress, cooperative, disheveled, morbidly obese Head exam: PRESENT: atraumatic, normocephalic Eye exam: PRESENT: EOMI, PERRLA. ABSENT: conjunctival injection, nystagmus, scleral icterus Ear exam: PRESENT: normal external ear exam Mouth exam: PRESENT: dry mucosa, tongue midline Teeth exam: PRESENT: poor dentation Neck exam: PRESENT: full ROM. ABSENT: carotid bruit, JVD, lymphadenopathy, meningismus, tenderness, thyromegaly Respiratory exam: PRESENT: decreased breath sounds, symmetrical, unlabored. ABSENT: accessory muscle use, prolonged expiratory phas, rales, rhonchi, ta chypnea, wheezes Cardiovascular exam: PRESENT: RRR, +S1, +S2 Vascular exam: PRESENT: normal capillary refill GI/Abdominal exam: PRESENT: normal bowel sounds, soft. ABSENT: distended, guarding, rebound, tenderness Extremities exam: ABSENT: clubbing, pedal edema Musculoskeletal exam: PRESENT: normal inspection. ABSENT: deformity Neurological exam: PRESENT: alert, awake, oriented to person, oriented to place, CN II-XII grossly intact - She would not cooperate with all aspects of the exam, but she did not appear to have any focal or lateralizing deficits. ABSENT: oriented to situation Psychiatric exam: PRESENT: appropriate affect - She seemed a bit paranoid, normal mood Skin exam: PRESENT: dry, warm Results Laboratory Results: 03/07/18 09:10 03/07/18 09:10 03/07/18 03/07/18 03/07/18 09:10 09:10 13:30 WBC 16.1 H RBC 4.67 Hgb 13.3 Hct 39.4 MCV 84 MCH 28.4 MCHC 33.7 RDW 15.3 H Plt Count 519 H Seg Neutrophils % 76.2 Lymphocytes % 17.3 Monocytes % 5.6 Eosinophils % 0.6 Basophils % 0.3 Absolute Neutrophils 12.3 H Absolute Lymphocytes 2.8 Absolute Monocytes 0.9 Absolute Eosinophils 0.1 Absolute Basophils 0.0 Carbonic Acid 1.23 HCO3/H2CO3 Ratio 20:1 ABG pH 7.40 ABG pCO2 40.7 ABG pO2 66.1 L ABG HCO3 24.6 H ABG O2 Saturation 93.1 L ABG Base Excess -0.1 FiO2 ROOM AIR Sodium 140.6 Potassium 4.3 Chloride 105 Carbon Dioxide 28 Anion Gap 8 BUN 15 Creatinine 0.70 Est GFR ( Amer) > 60 Est GFR (Non-Af Amer) > 60 Glucose 119 H Calcium 9.2 Total Bilirubin 0.2 AST 19 ALT 25 Alkaline Phosphatase 82 Total Protein 5.7 L Albumin 3.3 L 03/07/18 09:10 Troponin I < 0.012 Impressions: Chest X-Ray 03/07/18 07:50 IMPRESSION: 1. Stable examination since the prior study dated 03/05/2018. No acute findings. Assessment & Plan - Diagnosis (1) COPD with acute exacerbation Is this a current diagnosis for this admission?: Yes Plan: This looks to actually be resolved. I will put her on some prednisone and some as needed nebulizer treatments. (2) Cognitive impairment Is this a current diagnosis for this admission?: Yes Plan: Either she was lying to me about her recent history regarding hospitalizations and thinking I would not know or find out about it, or she is cognitively impaired. I am going to watch her overnight and will confront her about this tomorrow. When she left the hospital yesterday, she was apparently very hostile and was threatening the provider at that time. - Time Time Spent: 50 to 70 Minutes
[2018-03-07] MEDS: IPRATROPIUM/ALBUTEROL 0.5-2.5 MG/3 ML AMPUL NEB PRN (22:24)
[2018-03-07] MEDS: METHYLPREDNISOLONE INJ 40 MG/1 ML SDV IV SCH (23:18)
[2018-03-08] MEDS: IPRATROPIUM/ALBUTEROL 0.5-2.5 MG/3 ML AMPUL NEB PRN (02:24)
[2018-03-08] MEDS: HEPARIN SOD (PORCINE) 5,000 UNIT/ML 1 ML SYRINGE SUBCUT SCH (05:12)
[2018-03-08] MEDS: METHYLPREDNISOLONE INJ 40 MG/1 ML SDV IV SCH (05:12)
[2018-03-08] MEDS ORDERED: PREDNISONE 20 MG TABLET PO SCH (10:00)
[2018-03-08 13:32] VITALS: BP 103/88
--- NOTE | 2018-03-08 19:37 | PDOC DISCHARGE SUMMARY ---
General - Admit/Disc Date/PCP Admission Date/Primary Care Provider: 03/07/18 10:41 Discharge Date: 03/08/18 - Discharge Diagnosis (1) COPD with acute exacerbation Is this a current diagnosis for this admission?: Yes Summary: Resolved fairly rapidly with steroids and bronchodilators. At one point she needed some supplemental oxygen that was for a short period of time when she got herself worked up. She was on room air with saturations in the low 90s at time of discharge. (2) Cognitive impairment Is this a current diagnosis for this admission?: Yes Summary: I spoke with her daughter today and her daughter says that she has had a degree of dementia for a few years. After speaking with her daughter for a while in the phone today, I believe the patient is probably at her baseline. - Additional Information Discharge Diet: Diabetic Discharge Activity: Supervised Activity Prescriptions: Albuterol Sulfate [Proair Hfa Inhalation Aerosol 8.5 gm Mdi] 1 puff IH Q4HP PRN #1 mdi PRN Reason: Shortness Of Breath Nicotine [Nicoderm 21 mg/24 Hr Transderm Patch] 1 patch TD DAILY #30 patch.[id number] Prednisone [Deltasone 20 mg Tablet] 40 mg PO DAILY #10 tablet Home Medications: Albuterol Sulfate [Proair Hfa Inhalation Aerosol 8.5 gm Mdi] 1 puff IH Q4HP PRN #1 mdi 03/08/18 Nicotine [Nicoderm 21 mg/24 Hr Transderm Patch] 1 patch TD DAILY #30 patch.[email or web address] 03/08/18 Prednisone [Deltasone 20 mg Tablet] 40 mg PO DAILY #10 tablet 03/08/18 History of Present Illness History of Present Illness: BILL FERNANDEZ is a 72 year old female who left from this facility AGAINST MEDICAL ADVICE yesterday after having been admitted for an acute exacerbation of COPD. Today she was apparently brought in by her daughter who was not in the room whenever I came to see the patient. The patient says that she started getting short of breath last night when she was hanging some curtains, and then she sat down and smoked a cigarette and drank a cup of coffee and began to feel better. She is not quite sure how she got here this morning or why she is here. The ER provider told me that she looked pretty bad when she first came in, and was visibly short of breath, and got some steroids and nebulizer treatment and her symptoms improved. Apparently she was hypoxic when she first came in but when I saw her she was on room air and speaking in complete sentences sitting up on the side of the bed and talking to someone on the telephone, or at least that is what she made it appears she was doing. She would not let anyone put a pulse oximeter or a radiation monitor on her. I asked her if she had been in the hospital recently and she said no. I asked her again later on if she had been in the hospital in the past couple of weeks and she said no. Patient came here, according to our records, on February 27, and then came back in a few days later when she was admitted for COPD exacerbation. Hospital Course Hospital Course: She had one episode overnight where her oxygen saturations dropped when she got up to walk to the bathroom and she got a little anxious. She was put on oxygen for a little while and got back in the bed and was feeling fine and then took the oxygen off. At rest her oxygen saturations are between 90-93%. When she ambulates, she probably does drop her SPO2, but this patient is not going to quit smoking, so it is not safe to be able to discharge her with oxygen because she would not reliably take it off while smoking. I discussed this with her daughter and her daughter agreed. This patient also has a degree of cognitive impairment which is chronic according to her daughter. She is most likely at her baseline after the discussion I had with her daughter today. She will complete a course of prednisone at home, and I wrote her prescription for a nicotine patch because she did express a desire to stop smoking, and also included an albuterol inhaler. Her labs and examination were reassuring and she was discharged in good condition. When the discharge process did not move fast enough for her liking, she started pitching a fit and was throwing stuff into the hallway. Physical Exam Vital Signs: Temp Pulse Resp BP Pulse Ox 97.9 F 84 16 103/88 H 92 03/08/18 13:30 03/08/18 13:30 03/08/18 13:30 03/08/18 13:30 03/08/18 13:30 Intake & Output 03/07/18 03/08/18 03/09/18 06:59 06:59 06:59 Intake Total 600 Balance 600 Weight 89.2 kg General appearance: PRESENT: no acute distress, cooperative, disheveled, morbidly obese Respiratory exam: PRESENT: decreased breath sounds, symmetrical, unlabored. ABSENT: accessory muscle use, prolonged expiratory phas, rales, rhonchi, tachypnea, wheezes Cardiovascular exam: PRESENT: RRR, +S1, +S2 Vascular exam: PRESENT: normal capillary refill GI/Abdominal exam: PRESENT: normal bowel sounds, soft. ABSENT: distended, guarding, rebound, tenderness Extremities exam: ABSENT: clubbing, pedal edema Musculoskeletal exam: PRESENT: normal inspection. ABSENT: deformity Neurological exam: PRESENT: alert, awake, oriented to person, oriented to place. ABSENT: oriented to situation Psychiatric exam: PRESENT: appropriate affect - She seemed a bit paranoid, normal mood Skin exam: PRESENT: dry, warm Results Laboratory Results: 03/07/18 09:10 03/07/18 09:10 03/07/18 09:10 Troponin I < 0.012 Impressions: Chest X-Ray 03/07/18 07:50 IMPRESSION: 1. Stable examination since the prior study dated 03/05/2018. No acute findings. Qualifiers - * PATIENT BEING DISCHARGED WITH ANY OF THE FOLLOWING DIAGNOSIS: No
== END 2018-03-08 13:52 | disposition home or self-care (01) | DRG 192 ==
LOC: ER 07:30 → EH 10:41 → 5 17:43
PROVIDERS: ADMIT Internal Medicine; ATTEND Internal Medicine
DX: J44.1 Chronic obstructive pulmonary disease with (acute) exacerbation (principal); I10 Essential (primary) hypertension; F03.90 Unspecified dementia, unspecified severity, without behavioral disturbance, psychotic disturbance, mood disturbance, and anxiety; F17.210 Nicotine dependence, cigarettes, uncomplicated
CPT/HCPCS: 36415; 36600; 71045; 80053; 82803; 84484; 85025; 93005; 93010; 94640; 96374; 99285; J1630; J1644; J2920; J2930; J3486; J7512; J7620

== ENCOUNTER 2018-03-15 03:16 | Inpatient (IN) | payer MEDICARE ==
[2018-03-15] MEDS ORDERED: IPRATROPIUM/ALBUTEROL 0.5-2.5 MG/3 ML AMPUL NEB ONE (03:40)
[2018-03-15] MEDS ORDERED: METHYLPREDNISOLONE INJ 125 MG/2 ML SDV IV ONE (03:40)
[2018-03-15] MEDS ORDERED: ADENOSINE INJ/PF 6 MG/2 ML SDV IV ONE (03:48)
[2018-03-15] MEDS ORDERED: AMIODARONE HCL INJ 150 MG/3 ML VIAL IV ONE ×2 (03:52→04:01)
[2018-03-15] MEDS ORDERED: AMIODARONE HCL 150 MG in DEXTROSE 5%-WATER 100 ML IV ONE (03:54)
[2018-03-15] MEDS ORDERED: DEXTROSE 5%-WATER 500 ML with AMIODARONE HCL 900 MG IV PRN ×2 (03:54)
--- NOTE | 2018-03-15 03:56 | ER Document Report ---
Addendum entered and electronically signed by CAMMIE FISH PA-C 03/15/18 06:14: Physical Exam Vital Signs: Temp Pulse Resp BP Pulse Ox 98.0 F 18 131/83 H 97 03/15/18 03:36 03/15/18 06:00 03/15/18 04:02 03/15/18 06:00 Intake & Output 03/13/18 03/14/18 03/15/18 06:59 06:59 06:59 Intake Total 100 Balance 100 Weight 83.1 kg Physical Exam: GENERAL: Alert, interacts well. No acute distress. HEAD: Normocephalic, atraumatic. EYES: Pupils equal, round, and reactive to light. Extraocular movements intact. ENT: Oral mucosa moist, tongue midline. NECK: Full range of motion. Supple. Trachea midline. LUNGS: Clear to auscultation bilaterally apices, no wheezes, rales, or rhonchi. Diminished bilateral bases. No respiratory distress, speaking in full sentences. HEART: Irregular rate and rhythm. No murmur ABDOMEN: Obese soft, non-tender. Non-distended. Bowel sounds present in all 4 quadrants. EXTREMITIES: Moves all 4 extremities spontaneously. No edema, normal radial and dorsalis pedis pulses bilaterally. No cyanosis. BACK: no cervical, thoracic, lumbar midline tenderness. No saddle anesthesia, normal distal neurovascular exam. NEUROLOGICAL: Alert and unable to tell staff the current date or president. Cranial nerves II through XII grossly intact PSYCH: Normal affect, normal mood. SKIN: Warm, dry, normal turgor. No rashes or lesions noted. Addendum entered and electronically signed by CAMMIE FISH PA-C 03/15/18 06:12: Review of systems Constitutional: No symptoms reported EENT: No symptoms reported Cardiovascular: denies: Chest pain Respiratory: Short of breath Gastrointestinal: No symptoms reported Geniturinary: No symptoms reported Female Genitourinary: No symptoms reported Musculoskeltal: No symptoms reported Skin: No symptoms reported Hematologic/Lymphatic: No symptoms reported Neurological/Psychological: No symptoms reported Addendum entered and electronically signed by CAMMIE FISH PA-C 03/15/18 06:10: ED Respiratory Problem - General Chief Complaint: Shortness Of Breath Stated Complaint: TROUBLE BREATHING Time Seen by Provider: 03/15/18 03:30 Notes: Patient is a 72-year-old female presents to the emergency department via EMS for generalized shortness of breath. Patient was noted to have been recently discharged from this facility for his COPD exacerbation. Patient has had 2 admissions recently 1 where the patient left AGAINST MEDICAL ADVICE. Patient states this evening she was at home when she all of a sudden developed a sudden shortness of breath. Patient denies any chest discomfort, nausea, vomiting, dizziness. Patient initially states she has no medical problems and is currently feeling very well. Patient states she has no shortness of breath or chest pain at this time. States, "just let me sleep here a little." Patient also states she has no medical problems and takes no medications. Patient was brought into the emergency department via EMS, there is no family members to discuss patient presentation or past medical history with. EMS has no further information for staff. In reviewing past patient charts it is noted that she has a history of dementia. She does have a history of COPD with continued cigarette smoking. TRAVEL OUTSIDE OF THE [place] IN LAST 30 DAYS: No - Related Data Allergies/Adverse Reactions: Penicillins Allergy (Verified 03/05/18 10:09) Sulfa (Sulfonamide Antibiotics) Allergy (Verified 03/05/18 10:09) Addendum entered and electronically signed by GISELA VIDAL DO 03/15/18 05:16: Discharge - Discharge Clinical Impression: SVT (supraventricular tachycardia), V-tach Dyspnea Qualifiers: Dyspnea type: unspecified Qualified Code(s): R06.00 - Dyspnea, unspecified Condition: Stable Disposition: ADMITTED OBSERVATION Admitting Provider: Hospitalist Unit Admitted: IMCU Addendum entered and electronically signed by GISELA VIDAL DO 03/15/18 05:15: Course - Re-evaluation Re-evalutation: 03/15/18 05:14 Patient did not have any further episodes of SVT or V. tach after the full infusion of amiodarone was completed. She is resting comfortably and is asymptomatic when she is not having these meals. I suspect that is why she felt unwell coming in was because of the arrhythmias that she was having. Her troponin is not concerning elevated. Her white blood cell count is just slightly elevated which could be due to recent treatment steroids. I feel that she is appropriate for admission and observation. I did speak with the hospitalist, Dr. Alonso, who agrees to evaluate the patient for admission. Dictation of this chart was performed using voice recognition software; therefore, there may be some unintended grammatical errors. - Laboratory Result Diagrams: 03/15/18 03:27 03/15/18 03:27 Laboratory results interpreted by me: 03/15/18 03/15/18 03:27 03:27 WBC 14.7 H RDW 15.8 H Absolute Neutrophils 10.3 H Glucose 125 H AST 41 H Original Note: ED Respiratory Problem - General TRAVEL OUTSIDE OF THE [place] IN LAST 30 DAYS: No <CAMMIE FISH - Last Filed: 03/15/18 03:56> <GISELA VIDAL - Last Filed: 03/15/18 03:58> - General Chief Complaint: Shortness Of Breath Stated Complaint: TROUBLE BREATHING Time Seen by Provider: 03/15/18 03:30 - Related Data Allergies/Adverse Reactions: Penicillins Allergy (Verified 03/05/18 10:09) Sulfa (Sulfonamide Antibiotics) Allergy (Verified 03/05/18 10:09) Past Medical History - Social History Smoking Status: Current Every Day Smoker Family History: Reviewed & Not Pertinent Patient has suicidal ideation: No Patient has homicidal ideation: No - Past Medical History Cardiac Medical History: Reports: Hx Hypertension Pulmonary Medical History: Reports: Hx COPD Renal/ Medical History: Denies: Hx Peritoneal Dialysis Psychiatric Medical History: Reports: Hx Depression <CAMMIE FISH - Last Filed: 03/15/18 03:56> Course - Laboratory Result Diagrams: 03/15/18 03:27 03/15/18 03:27 <CAMMIE FISH - Last Filed: 03/15/18 03:56> - Laboratory Result Diagrams: 03/15/18 03:27 03/15/18 03:27 <GISELA VIDAL - Last Filed: 03/15/18 03:58> - Re-evaluation Re-evalutation: 03/15/18 03:56 Patient was initially seen by the physician administrative support assistant, Hailee Fish. Patient presents for difficulty breathing and is feeling unwell. While in the ER patient had approximately 10 beat run of V. tach followed by SVT. Went to bedside and the patient broke on her own is where pulled up adenosine. Patient then went back into SVT. When she is in SVT she will have occasional runs of V. tach. Patient then broke again out of the SVT on her own. Again EKG after SVT had broken and she is in sinus rhythm. I do not see any evidence of A. fib, MAT, or atrial flutter. I will give the patient a dose of amiodarone due to her recurrence of SVT with runs of V. tach. Blood work is pending. Patient clinically looks well at this time. Blood pressure stable. (GISELA VIDAL)
[2018-03-15 03:58] LABS: ABSOLUTE BASOPHILS # (AUTO) 0.1 10^3/uL (0.0-0.2); ABSOLUTE EOSINOPHILS # (AUTO) 0.2 10^3/uL (0.0-0.6); ABSOLUTE LYMPHOCYTES (AUTO) 3.2 10^3/uL (0.5-4.7); ABSOLUTE NEUT (AUTO) 10.3 10^3/uL (1.7-8.2); BASOPHILS % (AUTO) 0.6 % (0-2); EOSINOPHILS % (AUTO) 1.1 % (0-6); HEMATOCRIT 43.9 % (36.0-47.0); HEMOGLOBIN 14.6 g/dL (12.0-15.5); LYMPHOCYTES % (AUTO) 21.4 % (13-45); MEAN CORPUSCULAR HEMOGLOBIN 27.9 pg (27.0-33.4); MEAN CORPUSCULAR HGB CONC 33.2 g/dL (32.0-36.0); MEAN CORPUSCULAR VOLUME 84 fl (80-97); MONOCYTES % (AUTO) 6.8 % (3-13); PLATELET COUNT 387 10^3/uL (150-450); RED BLOOD COUNT 5.23 10^6/uL (3.72-5.28); RED CELL DISTRIBUTION WIDTH 15.8 % (11.5-14.0); SEGMENTED NEUTROPHILS % (AUTO) 70.1 % (42-78); TOTAL CELLS COUNTED % (AUTO) 100 %; WHITE BLOOD COUNT 14.7 10^3/uL (4.0-10.5)
[2018-03-15 04:03] LABS: ALANINE AMINOTRANSFERASE 22 U/L (9-52); ALBUMIN 3.7 g/dL (3.5-5.0); ALKALINE PHOSPHATASE 70 U/L (38-126); ANION GAP 5 (5-19); ASPARTATE AMINO TRANSFERASE 41 U/L (14-36); BILIRUBIN,DIRECT 0.3 mg/dL (0.0-0.4); BILIRUBIN,TOTAL 0.6 mg/dL (0.2-1.3); BLOOD UREA NITROGEN 15 mg/dL (7-20); CALCIUM 8.9 mg/dL (8.4-10.2); CARBON DIOXIDE 29 mmol/L (22-30); CHLORIDE 105 mmol/L (98-107); GLUCOSE 125 mg/dL (75-110); POTASSIUM 4.1 mmol/L (3.6-5.0); SODIUM 139.4 mmol/L (137-145); TOTAL PROTEIN 6.4 g/dL (6.3-8.2)
--- NOTE | 2018-03-15 04:53 | RADIOLOGY REPORT (SQ) ---
EXAM DESCRIPTION: XR CHEST 1 VIEW COMPLETED DATE/TME: 03/15/2018 04:22 CLINICAL HISTORY: 72 years, Female, SOB COMPARISON: March 07, 2018 NUMBER OF VIEWS: One TECHNIQUE: AP view of the chest LIMITATIONS: None. FINDINGS: The lungs are clear. There are no pleural abnormalities. The cardiac silhouette is enlarged but stable. Pulmonary vessels are normal. IMPRESSION: Mild cardiomegaly, unchanged from prior study. copyright 2010 [facility]- All Rights Reserved
[2018-03-15] MEDS ORDERED: IPRATROPIUM BROMIDE 0.02% NEB 0.5 MG/2.5 ML AMPUL NEB SCH (06:00)
[2018-03-15] MEDS ORDERED: HYDRALAZINE HCL INJ/PF 20 MG/1 ML SDV IV PRN (06:28)
[2018-03-15] MEDS ORDERED: CHLORPHENIRAMINE MALEATE 4 MG TABLET PO ONE (06:28)
--- NOTE | 2018-03-15 06:28 | PDOC H&P ---
History of Present Illness Admission Date/PCP: 03/15/18 05:24 Patient complains of: Shortness of breath History of Present Illness: BILL FERNANDEZ is a 72 year old female with a past medical history of COPD, chronic bronchitis, tobacco Dependence and dementia. Patient presents to the emergency department with shortness of breath and found to be in SVT with in termittent runs of V. tach. She is placed on amiodarone resulting in conversion to normal sinus rhythm. She denies chest pain nausea vomiting or diaphoresis. She has baseline dementia but socially appropriate however unable to recall details regarding recent medications or inhaler use. She has an unremarkable workup otherwise with exception to leukocytosis of 14 but is on prednisone. Past Medical History Cardiac Medical History: Reports: Hypertension Pulmonary Medical History: Reports: Chronic Obstructive Pulmonary Disease (COPD) Psychiatric Medical History: Reports: Dementia, Depression, Tobacco Dependency Social History Information Source: Patient, [facility] Records Lives with: Family Smoking Status: Current Every Day Smoker Frequency of Alcohol Use: None Hx Recreational Drug Use: No Drugs: None Hx Prescription Drug Abuse: No - Advance Directive Resuscitation Status: Full Code Family History Family History: Hypertension Parental Family History Reviewed: Yes Children Family History Reviewed: Yes Sibling(s) Family History Reviewed.: Yes Medication/Allergy Home Medications: Albuterol Sulfate [Proair Hfa Inhalation Aerosol 8.5 gm Mdi] 1 puff IH Q4HP PRN #1 mdi 03/08/18 Nicotine [Nicoderm 21 mg/24 Hr Transderm Patch] 1 patch TD DAILY #30 patch.[id number] 03/08/18 Prednisone [Deltasone 20 mg Tablet] 40 mg PO DAILY #10 tablet 03/08/18 Allergies/Adverse Reactions: Penicillins Allergy (Verified 03/05/18 10:09) Sulfa (Sulfonamide Antibiotics) Allergy (Verified 03/05/18 10:09) Review of Systems ROS unobtainable: Due to mental status Physical Exam Vital Signs: Temp Pulse Resp BP Pulse Ox 98.0 F 18 131/83 H 2 L 03/15/18 03:36 03/15/18 06:00 03/15/18 04:02 03/15/18 06:12 Intake & Output 03/13/18 03/14/18 03/15/18 11:59 11:59 11:59 Intake Total 100 Balance 100 Weight 83.1 kg General appearance: PRESENT: cooperative, disheveled, mild distress Head exam: PRESENT: atraumatic, normocephalic Eye exam: PRESENT: conjunctiva pink, EOMI, PERRLA. ABSENT: scleral icterus Ear exam: PRESENT: normal external ear exam Mouth exam: PRESENT: moist, tongue midline Neck exam: ABSENT: carotid bruit, JVD, lymphadenopathy, thyromegaly Respiratory exam: PRESENT: accessory muscle use, crackles, decreased breath sounds, prolonged expiratory phas, symmetrical. ABSENT: rhonchi, stridor Cardiovascular exam: PRESENT: RRR. ABSENT: diastolic murmur, rubs, systolic murmur Pulses: PRESENT: normal dorsalis pedis pul Vascular exam: PRESENT: normal capillary refill GI/Abdominal exam: PRESENT: normal bowel sounds, soft. ABSENT: distended, guarding, mass, organolmegaly, rebound, tenderness Rectal exam: PRESENT: deferred Extremities exam: PRESENT: full ROM. ABSENT: calf tenderness, clubbing, pedal edema Neurological exam: PRESENT: alert, awake, oriented to person, CN II-XII grossly intact Psychiatric exam: PRESENT: appropriate affect, normal mood. ABSENT: homicidal ideation, suicidal ideation Skin exam: PRESENT: dry, intact, warm. ABSENT: cyanosis, rash Results Laboratory Results: 03/15/18 03:27 03/15/18 03:27 03/15/18 03/15/18 03:27 03:27 WBC 14.7 H RBC 5.23 Hgb 14.6 Hct 43.9 MCV 84 MCH 27.9 MCHC 33.2 RDW 15.8 H Plt Count 387 Seg Neutrophils % 70.1 Lymphocytes % 21.4 Monocytes % 6.8 Eosinophils % 1.1 Basophils % 0.6 Absolute Neutrophils 10.3 H Absolute Lymphocytes 3.2 Absolute Monocytes 1.0 Absolute Eosinophils 0.2 Absolute Basophils 0.1 Sodium 139.4 Potassium 4.1 Chloride 105 Carbon Dioxide 29 Anion Gap 5 BUN 15 Creatinine 0.64 Est GFR ( Amer) > 60 Est GFR (Non-Af Amer) > 60 Glucose 125 H Calcium 8.9 Total Bilirubin 0.6 AST 41 H ALT 22 Alkaline Phosphatase 70 Total Protein 6.4 Albumin 3.7 03/15/18 03:27 Troponin I 0.026 Impressions: Chest X-Ray 03/15/18 04:22 IMPRESSION: Mild cardiomegaly, unchanged from prior study. copyright 2011 [employer] All Rights Reserved Assessment & Plan - Diagnosis (1) V-tach Is this a current diagnosis for this admission?: Yes Plan: Continue amiodarone (2) Acute exacerbation of chronic obstructive airways disease Is this a current diagnosis for this admission?: Yes Plan: Avoid albuterol, Xopenex every 8 ordered, Flonase and flutter valve (3) Cognitive impairment Is this a current diagnosis for this admission?: Yes Plan: At baseline, supportive care (4) Current everyday smoker Is this a current diagnosis for this admission?: Yes Plan: Tobacco Dependence patient received tobacco cessation counseling and offered nicotine replacement options - Time Time Spent: 50 to 70 Minutes
[2018-03-15] MEDS: IPRATROPIUM BROMIDE 0.02% NEB 0.5 MG/2.5 ML AMPUL NEB SCH ×2 (08:10→16:24)
[2018-03-15] MEDS: LEVALBUTEROL HCL NEB 1.25 MG/3 ML AMPUL NEB SCH ×2 (08:10→16:24)
[2018-03-15] MEDS ORDERED: LORAZEPAM INJ 2 MG/1 ML VIAL ONE (09:35)
[2018-03-15] MEDS ORDERED: LORAZEPAM INJ 2 MG/1 ML VIAL IV PRN (09:37)
[2018-03-15] MEDS: NICOTINE 21 MG/24 HR PATCH.TD24 TD SCH (10:25)
[2018-03-15] MEDS: FLUTICASONE NASAL SPRAY 50 MCG/SPRY 120 SPRAY/16 GM NASL SCH (10:27)
[2018-03-15] MEDS: DOCUSATE SODIUM 100 MG CAPSULE PO SCH ×2 (10:27→18:21)
--- NOTE | 2018-03-15 10:36 | PDOC PROGRESS REPORT ---
Subjective Progress Note for:: 03/15/18 Subjective:: 03/15/2018 this elderly female with history of advanced dementia admitted for COPD exacerbation and found to be in SVT, with intermittent runs of V. tach she was placed on amiodarone drip converted to sinus rhythm. I went to her room several times today because of her advanced dementia she is unable to remember the conversations I have with her every 5 minutes she is asking for a physician to come and see with the complaints that nobody came and talked to her at all. I went to talk to her several times patient requesting to go out to smoke try to explain to her that she is on amiodarone drip and wearing the radiation monitor she cannot go out of the flow but the patient has a hard time understanding. She wants to leave the hospital and go home saying nothing wrong with her but because of her advanced dementia be put her on a soft restraints. Planning to give her Ativan 1 mg IV every 6 as needed for agitation. As per the patient request V going to put her on nicotine patch. Dr. Parker came to see the patient he requested me to discontinue amiodarone drip and start on Cardizem drip and order was already placed by me just a few minutes ago. Reason For Visit: SVT, COPD EXACERBATION, TOBACCO Physical Exam Vital Signs: Temp Pulse Resp BP Pulse Ox 97.8 F 71 24 H 160/56 H 100 03/15/18 06:30 03/15/18 08:10 03/15/18 08:10 03/15/18 08:00 03/15/18 08:10 Intake & Output 03/14/18 03/15/18 03/16/18 06:59 06:59 06:59 Intake Total 100 500 Balance 100 500 Weight 89.6 kg General appearance: PRESENT: no acute distress, other - Patient was agitated and noncooperative. Head exam: PRESENT: atraumatic Eye exam: PRESENT: PERRLA Mouth exam: PRESENT: moist Respiratory exam: PRESENT: decreased breath sounds Cardiovascular exam: PRESENT: RRR GI/Abdominal exam: PRESENT: normal bowel sounds, soft. ABSENT: distended, guarding, mass, organolmegaly, rebound, tenderness Extremities exam: PRESENT: full ROM. ABSENT: calf tenderness, clubbing, pedal edema Neurological exam: PRESENT: alert, awake, oriented to person, oriented to place, oriented to time, oriented to situation, CN II-XII grossly intact. ABSENT: motor sensory deficit Psychiatric exam: PRESENT: appropriate affect, normal mood. ABSENT: homicidal ideation, suicidal ideation Results Laboratory Results: 03/15/18 03:27 03/15/18 03:27 03/15/18 03/15/18 03:27 03:27 WBC 14.7 H RBC 5.23 Hgb 14.6 Hct 43.9 MCV 84 MCH 27.9 MCHC 33.2 RDW 15.8 H Plt Count 387 Seg Neutrophils % 70.1 Lymphocytes % 21.4 Monocytes % 6.8 Eosinophils % 1.1 Basophils % 0.6 Absolute Neutrophils 10.3 H Absolute Lymphocytes 3.2 Absolute Monocytes 1.0 Absolute Eosinophils 0.2 Absolute Basophils 0.1 Sodium 139.4 Potassium 4.1 Chloride 105 Carbon Dioxide 29 Anion Gap 5 BUN 15 Creatinine 0.64 Est GFR ( Amer) > 60 Est GFR (Non-Af Amer) > 60 Glucose 125 H Calcium 8.9 Total Bilirubin 0.6 AST 41 H ALT 22 Alkaline Phosphatase 70 Total Protein 6.4 Albumin 3.7 03/15/18 03:27 Troponin I 0.026 Impressions: Chest X-Ray 03/15/18 04:22 IMPRESSION: Mild cardiomegaly, unchanged from prior study. copyright 2010 [employer]- All Rights Reserved Assessment & Plan - Diagnosis (1) SVT (supraventricular tachycardia) Is this a current diagnosis for this admission?: Yes Plan: 03/15/2018 patient was admitted for SVT associated with few runs of V. tach last night. She was placed on amiodarone. Converted to sinus rhythm. As per the metal control worker recommendations amiodarone was discontinued and she was placed on Cardizem drip. This SVT/rapid heart rate probably secondary to COPD exacerbation. Patient is not on albuterol nebs. (2) Acute exacerbation of chronic obstructive airways disease Is this a current diagnosis for this admission?: Yes Plan: 03/15/2018-patient is on Xopenex nebulizations, Flonase and flutter wall flutter wall treatments not on albuterol nebs not on IV Solu-Medrol because of the SVT. Chest x-ray there is no evidence of pneumonia. COPD secondary to chronic smoking. I am going to put her on nicotine patch. (3) Cognitive impairment Is this a current diagnosis for this admission?: Yes Plan: 03/15/2018 patient has advanced dementia with cognitive impairment. Plan is supportive care. She was agitated this morning report of the radiation monitor high to pull off the IV line so we placed on a soft restraints. And also started on Ativan 1 mg IV every 6 as needed. (4) Current everyday smoker Is this a current diagnosis for this admission?: Yes Plan: 03/15/2018 patient is a chronic smoker requesting to go out to smoke. She agreed to be on a nicotine patch. - Time Time Spent with patient: 15-24 minutes Smoking Cessation Education: over 10 minutes Medications reviewed and adjusted accordingly: Yes Anticipated discharge: Home
[2018-03-15] MEDS ORDERED: HALOPERIDOL LACTATE INJ 5 MG/1 ML VIAL IV PRN (10:39)
[2018-03-15] MEDS: DILTIAZEM HCL/D5W 125 MG/125 ML RTUINJ IV PRN ×2 (10:55→23:28)
[2018-03-15] MEDS ORDERED: HALOPERIDOL LACTATE INJ 5 MG/1 ML VIAL ONE (11:27)
[2018-03-15] MEDS ORDERED: ZIPRASIDONE MESYLATE INJ/PF 20 MG SDV IM ONE ×2 (13:00→17:00)
[2018-03-15 17:29] LABS: CREATINE KINASE MB 1.86 ng/mL (<4.55)
[2018-03-15 17:33] LABS: TROPONIN I < 0.012 ng/mL
--- NOTE | 2018-03-15 17:56 | EKG REPORT ---
SEVERITY:- ABNORMAL ECG - SINUS RHYTHM MULTIPLE ATRIAL PREMATURE COMPLEXES PROBABLE LEFT ATRIAL ABNORMALITY : Confirmed by: Mook Castillo 15-Mar-2018 17:55:55
--- NOTE | 2018-03-15 17:56 | EKG REPORT ---
SEVERITY:- ABNORMAL ECG - SINUS RHYTHM MULTIPLE ATRIAL PREMATURE COMPLEXES : Confirmed by: Mook Castillo 15-Mar-2018 17:56:13
--- NOTE | 2018-03-15 17:56 | EKG REPORT ---
SEVERITY:- ABNORMAL ECG - SUPRAVENTRICULAR TACHYCARDIA : Confirmed by: Mook Castillo 15-Mar-2018 17:56:06
[2018-03-15 18:17] LABS: APPEARANCE,URINE CLEAR; BILIRUBIN,URINE NEGATIVE (NEGATIVE); COLOR,URINE YELLOW; GLUCOSE, URINE NEGATIVE (NEGATIVE); KETONES,URINE NEGATIVE (NEGATIVE); LEUKOCYTE ESTERASE,URINE NEGATIVE (NEGATIVE); NITRITE,URINE NEGATIVE (NEGATIVE); PROTEIN,URINE NEGATIVE (NEGATIVE); URINE SPECIFIC GRAVITY 1.005; UROBILINOGEN,URINE NEGATIVE mg/dL (<2.0)
[2018-03-15 21:19] LABS: CREATINE KINASE MB 1.82 ng/mL (<4.55); TROPONIN I 0.014 ng/mL
[2018-03-16] MEDS: IPRATROPIUM BROMIDE 0.02% NEB 0.5 MG/2.5 ML AMPUL NEB SCH ×3 (00:13→16:49)
[2018-03-16] MEDS: LEVALBUTEROL HCL NEB 1.25 MG/3 ML AMPUL NEB SCH ×3 (00:13→16:49)
[2018-03-16] MEDS: FLUTICASONE NASAL SPRAY 50 MCG/SPRY 120 SPRAY/16 GM NASL SCH ×3 (00:54→21:51)
[2018-03-16 02:39] LABS: ANION GAP 5 (5-19); BLOOD UREA NITROGEN 13 mg/dL (7-20); CALCIUM 8.6 mg/dL (8.4-10.2); CARBON DIOXIDE 28 mmol/L (22-30); CHLORIDE 107 mmol/L (98-107); CREATINE KINASE 35 U/L (30-135); GLUCOSE 131 mg/dL (75-110); POTASSIUM 4.4 mmol/L (3.6-5.0); SODIUM 139.7 mmol/L (137-145)
[2018-03-16 02:40] LABS: ABSOLUTE BASOPHILS # (AUTO) 0.1 10^3/uL (0.0-0.2); ABSOLUTE EOSINOPHILS # (AUTO) 0.2 10^3/uL (0.0-0.6); ABSOLUTE MONOCYTES (AUTO) 0.9 10^3/uL (0.1-1.4); ABSOLUTE NEUT (AUTO) 9.2 10^3/uL (1.7-8.2); BASOPHILS % (AUTO) 0.5 % (0-2); EOSINOPHILS % (AUTO) 1.3 % (0-6); HEMOGLOBIN 13.4 g/dL (12.0-15.5); LYMPHOCYTES % (AUTO) 16.5 % (13-45); MEAN CORPUSCULAR HGB CONC 33.5 g/dL (32.0-36.0); MEAN CORPUSCULAR VOLUME 84 fl (80-97); MONOCYTES % (AUTO) 7.2 % (3-13); PLATELET COUNT 263 10^3/uL (150-450); RED BLOOD COUNT 4.79 10^6/uL (3.72-5.28); SEGMENTED NEUTROPHILS % (AUTO) 74.5 % (42-78); TOTAL CELLS COUNTED % (AUTO) 100 %; WHITE BLOOD COUNT 12.3 10^3/uL (4.0-10.5)
[2018-03-16 02:50] LABS: CREATINE KINASE MB 1.41 ng/mL (<4.55); TROPONIN I 0.019 ng/mL
[2018-03-16] MEDS: DOCUSATE SODIUM 100 MG CAPSULE PO SCH ×2 (09:04→17:01)
[2018-03-16] MEDS: NICOTINE 21 MG/24 HR PATCH.TD24 TD SCH (09:05)
[2018-03-16] MEDS: ZIPRASIDONE MESYLATE INJ/PF 20 MG SDV IM PRN ×3 (11:10→23:52)
--- NOTE | 2018-03-16 14:47 | PDOC PROGRESS REPORT ---
Subjective Progress Note for:: 03/16/18 Subjective:: 03/15/2018 this elderly female with history of advanced dementia admitted for COPD exacerbation and found to be in SVT, with intermittent runs of V. tach she was placed on amiodarone drip converted to sinus rhythm. I went to her room several times today because of her advanced dementia she is unable to remember the conversations I have with her every 5 minutes she is asking for a physician to come and see with the complaints that nobody came and talked to her at all. I went to talk to her several times patient requesting to go out to smoke try to explain to her that she is on amiodarone drip and wearing the nuclear monitoring technician she cannot go out of the flow but the patient has a hard time understanding. She wants to leave the hospital and go home saying nothing wrong with her but because of her advanced dementia be put her on a soft restraints. Planning to give her Ativan 1 mg IV every 6 as needed for agitation. As per the patient request V going to put her on nicotine patch. Dr. Parker came to see the patient he requested me to discontinue amiodarone drip and start on Cardizem drip and order was already placed by me just a few minutes ago. 03/16/2018 patient is still agitated and anxious she is getting Geodon on as needed basis she is expressing desire to go home. She is unable to take heLTH CARE DECISIONS because of advanced dementia. Patient's daughter is helping as in taking care of the patient. Patient still on Cardizem drip. As per the employee relations specialist drip was titrated to 7.5 mg/h. Reason For Visit: SVT, COPD EXACERBATION, TOBACCO Physical Exam Vital Signs: Temp Pulse Resp BP Pulse Ox 98.0 F 87 18 157/88 H 94 03/16/18 07:52 03/16/18 14:00 03/16/18 09:07 03/16/18 14:00 03/16/18 09:07 Intake & Output 03/15/18 03/16/18 03/17/18 06:59 06:59 06:59 Intake Total 100 1983 Output Total 300 Balance 100 1683 Weight 89.6 kg 92.7 kg General appearance: PRESENT: no acute distress Head exam: PRESENT: atraumatic Eye exam: PRESENT: PERRLA Mouth exam: PRESENT: moist Neck exam: ABSENT: carotid bruit, JVD, lymphadenopathy, thyromegaly Respiratory exam: PRESENT: decreased breath sounds Cardiovascular exam: PRESENT: irregular rhythm, systolic murmur, tachycardia GI/Abdominal exam: PRESENT: normal bowel sounds, soft. ABSENT: distended, guarding, mass, organolmegaly, rebound, tenderness Extremities exam: PRESENT: full ROM. ABSENT: calf tenderness, clubbing, pedal edema Neurological exam: PRESENT: alert, awake, oriented to person, oriented to place, oriented to time, oriented to situation, CN II-XII grossly intact. ABSENT: motor sensory deficit Psychiatric exam: PRESENT: appropriate affect, normal mood. ABSENT: homicidal ideation, suicidal ideation Results Laboratory Results: 03/16/18 02:21 03/16/18 02:21 03/15/18 03/15/18 03/16/18 16:34 18:00 02:21 WBC 12.3 H RBC 4.79 Hgb 13.4 Hct 40.0 MCV 84 MCH 28.0 MCHC 33.5 RDW 16.0 H Plt Count 263 Seg Neutrophils % 74.5 Lymphocytes % 16.5 Monocytes % 7.2 Eosinophils % 1.3 Basophils % 0.5 Absolute Neutrophils 9.2 H Absolute Lymphocytes 2.0 Absolute Monocytes 0.9 Absolute Eosinophils 0.2 Absolute Basophils 0.1 Sodium Potassium 4.0 Chloride Carbon Dioxide Anion Gap BUN Creatinine Est GFR ( Amer) Est GFR (Non-Af Amer) Glucose Calcium Urine Color YELLOW Urine Appearance CLEAR Urine pH 6.0 Ur Specific Balm 1.005 Urine Protein NEGATIVE Urine Glucose (UA) NEGATIVE Urine Ketones NEGATIVE Urine Blood NEGATIVE Urine Nitrite NEGATIVE Ur Leukocyte Esterase NEGATIVE Urine WBC (Auto) 1 Urine RBC (Auto) 0 03/16/18 02:21 WBC RBC Hgb Hct MCV MCH MCHC RDW Plt Count Seg Neutrophils % Lymphocytes % Monocytes % Eosinophils % Basophils % Absolute Neutrophils Absolute Lymphocytes Absolute Monocytes Absolute Eosinophils Absolute Basophils Sodium 139.7 Potassium 4.4 Chloride 107 Carbon Dioxide 28 Anion Gap 5 BUN 13 Creatinine 0.63 Est GFR ( Amer) > 60 Est GFR (Non-Af Amer) > 60 Glucose 131 H Calcium 8.6 Urine Color Urine Appearance Urine pH Ur Specific Balm Urine Protein Urine Glucose (UA) Urine Ketones Urine Blood Urine Nitrite Ur Leukocyte Esterase Urine WBC (Auto) Urine RBC (Auto) 03/15/18 03/15/18 03/15/18 03:27 16:34 20:35 Creatine Kinase CK-MB (CK-2) 1.86 1.82 Troponin I 0.026 < 0.012 0.014 NT-Pro-B Natriuret Pep 03/16/18 03/16/18 03/16/18 02:21 02:21 02:21 Creatine Kinase 35 CK-MB (CK-2) 1.41 Troponin I 0.019 NT-Pro-B Natriuret Pep 279 Impressions: Chest X-Ray 03/15/18 04:22 IMPRESSION: Mild cardiomegaly, unchanged from prior study. copyright 2010 [employer]- All Rights Reserved Assessment & Plan - Diagnosis (1) SVT (supraventricular tachycardia) Is this a current diagnosis for this admission?: Yes Plan: 03/15/2018 patient was admitted for SVT associated with few runs of V. tach last night. She was placed on amiodarone. Converted to sinus rhythm. As per the employee relations specialist recommendations amiodarone was discontinued and she was placed on Cardizem drip. This SVT/rapid heart rate probably secondary to COPD exacerbation. Patient is not on albuterol nebs. 03/16/2018-because of the atrial fibrillation and tachycardia patient is on Cardizem drip. Drip was increased to 5 mg/h to control the heart rate. Dr. Parker is following the patient the cause for this A. fib with rapid ventric ular rate probably secondary to underlying COPD. Plan is to continue the present management. BNP is 280. (2) Acute exacerbation of chronic obstructive airways disease Is this a current diagnosis for this admission?: Yes Plan: 03/15/2018-patient is on Xopenex nebulizations, Flonase and flutter wall flutter wall treatments not on albuterol nebs not on IV Solu-Medrol because of the SVT. Chest x-ray there is no evidence of pneumonia. COPD secondary to chronic smoking. I am going to put her on nicotine patch. 2018-patient is pulse ox is 94% on 2 L. Patient is on scheduled nebulizations but she is not on albuterol because of the high heart rate. She is also not on IV Solu-Medrol because of the A. fib with rapid ventricular rate. (3) Cognitive impairment Is this a current diagnosis for this admission?: Yes Plan: 03/15/2018 patient has advanced dementia with cognitive impairment. Plan is supportive care. She was agitated this morning report of the nuclear monitoring technician high to pull off the IV line so we placed on a soft restraints. And also started on Ativan 1 mg IV every 6 as needed. 03/16/2018 patient has advanced dementia with cognitive impairment. In my opinion she is unable to take any healthcare conditions. She is expressing desire to go home every 5 minutes wants to smoke outside. [facility] nurses talked to her several times without any success. But the patient's daughter wants to keep the patient in the hospital until she is stable. (4) Current everyday smoker Is this a current diagnosis for this admission?: Yes Plan: 03/15/2018 patient is a chronic smoker requesting to go out to smoke. She agreed to be on a nicotine patch. 03/16/2017 patient is a chronic smoker she was a nicotine patch on daily basis. - Time Time Spent with patient: 15-24 minutes Medications reviewed and adjusted accordingly: Yes
[2018-03-16] MEDS: DILTIAZEM HCL/D5W 125 MG/125 ML RTUINJ IV PRN ×2 (14:57→23:30)
[2018-03-16] MEDS: HALOPERIDOL LACTATE INJ 5 MG/1 ML VIAL IV PRN (16:47)
[2018-03-17] MEDS: LEVALBUTEROL HCL NEB 1.25 MG/3 ML AMPUL NEB SCH ×3 (00:06→16:51)
[2018-03-17] MEDS: IPRATROPIUM BROMIDE 0.02% NEB 0.5 MG/2.5 ML AMPUL NEB SCH ×3 (00:06→16:51)
[2018-03-17] MEDS: HALOPERIDOL LACTATE INJ 5 MG/1 ML VIAL IV PRN (01:14)
[2018-03-17 06:10] LABS: ALANINE AMINOTRANSFERASE 24 U/L (9-52); ALBUMIN 3.4 g/dL (3.5-5.0); ALKALINE PHOSPHATASE 74 U/L (38-126); ANION GAP 6 (5-19); ASPARTATE AMINO TRANSFERASE 15 U/L (14-36); BILIRUBIN,DIRECT 0.2 mg/dL (0.0-0.4); BILIRUBIN,TOTAL 0.9 mg/dL (0.2-1.3); BLOOD UREA NITROGEN 9 mg/dL (7-20); CALCIUM 9.1 mg/dL (8.4-10.2); CARBON DIOXIDE 28 mmol/L (22-30); CHLORIDE 104 mmol/L (98-107); GLUCOSE 142 mg/dL (75-110); SODIUM 137.9 mmol/L (137-145); TOTAL PROTEIN 5.7 g/dL (6.3-8.2)
[2018-03-17] MEDS: DILTIAZEM HCL/D5W 125 MG/125 ML RTUINJ IV PRN ×2 (08:03→16:08)
[2018-03-17] MEDS: NICOTINE 21 MG/24 HR PATCH.TD24 TD SCH (10:55)
[2018-03-17] MEDS: DOCUSATE SODIUM 100 MG CAPSULE PO SCH ×2 (10:55→19:25)
[2018-03-17] MEDS: FLUTICASONE NASAL SPRAY 50 MCG/SPRY 120 SPRAY/16 GM NASL SCH ×2 (10:56→23:04)
--- NOTE | 2018-03-17 11:07 | PDOC PROGRESS REPORT ---
Subjective Progress Note for:: 03/17/18 Subjective:: 03/15/2018 this elderly female with history of advanced dementia admitted for COPD exacerbation and found to be in SVT, with intermittent runs of V. tach she was placed on amiodarone drip converted to sinus rhythm. I went to her room several times today because of her advanced dementia she is unable to remember the conversations I have with her every 5 minutes she is asking for a physician to come and see with the complaints that nobody came and talked to her at all. I went to talk to her several times patient requesting to go out to smoke try to explain to her that she is on amiodarone drip and wearing the monitor worker she cannot go out of the flow but the patient has a hard time understanding. She wants to leave the hospital and go home saying nothing wrong with her but because of her advanced dementia be put her on a soft restraints. Planning to give her Ativan 1 mg IV every 6 as needed for agitation. As per the patient request V going to put her on nicotine patch. Dr. Parker came to see the patient he requested me to discontinue amiodarone drip and start on Cardizem drip and order was already placed by me just a few minutes ago. 03/16/2018 patient is still agitated and anxious she is getting Geodon on as needed basis she is expressing desire to go home. She is unable to take heLTH CARE DECISIONS because of advanced dementia. Patient's daughter is helping as in taking care of the patient. Patient still on Cardizem drip. As per the eyewear manufacturing supervisor drip was titrated to 7.5 mg/h. 03/17/2018 no acute events in the last 24 hours. Patient is afebrile. Patient is still on Cardizem drip. Placed on 2 L oxygen via nasal cannula. We are going to renew her soft restraints. Reason For Visit: SVT, COPD EXACERBATION, TOBACCO Physical Exam Vital Signs: Temp Pulse Resp BP Pulse Ox 98.0 F 85 18 88/70 L 90 L 03/17/18 08:16 03/17/18 10:00 03/17/18 08:16 03/17/18 10:00 03/17/18 08:16 Intake & Output 03/16/18 03/17/18 03/18/18 06:59 06:59 06:59 Intake Total 1983 1657 125 Output Total 300 600 Balance 1683 1057 125 Weight 92.7 kg 92.8 kg General appearance: PRESENT: no acute distress Head exam: PRESENT: atraumatic Eye exam: PRESENT: PERRLA Teeth exam: PRESENT: poor dentation Neck exam: ABSENT: carotid bruit, JVD, lymphadenopathy, thyromegaly Respiratory exam: PRESENT: decreased breath sounds Cardiovascular exam: PRESENT: irregular rhythm, systolic murmur, tachycardia GI/Abdominal exam: PRESENT: normal bowel sounds, soft. ABSENT: distended, guarding, mass, organolmegaly, rebound, tenderness Extremities exam: PRESENT: full ROM. ABSENT: calf tenderness, clubbing, pedal edema Neurological exam: PRESENT: CN II-XII grossly intact, other - Patient has advanced dementia. Psychiatric exam: PRESENT: agitated, anxious Results Laboratory Results: 03/16/18 02:21 03/17/18 05:14 03/17/18 03/17/18 05:14 05:14 Sodium 137.9 Potassium 4.0 Chloride 104 Carbon Dioxide 28 Anion Gap 6 BUN 9 Creatinine 0.50 L Est GFR ( Amer) > 60 Est GFR (Non-Af Amer) > 60 Glucose 142 H Calcium 9.1 Magnesium 2.2 Total Bilirubin 0.9 AST 15 ALT 24 Alkaline Phosphatase 74 Total Protein 5.7 L Albumin 3.4 L TSH 3.71 03/15/18 03/15/18 03/15/18 03:27 16:34 20:35 Creatine Kinase CK-MB (CK-2) 1.86 1.82 Troponin I 0.026 < 0.012 0.014 NT-Pro-B Natriuret Pep 03/16/18 03/16/18 03/16/18 02:21 02:21 02:21 Creatine Kinase 35 CK-MB (CK-2) 1.41 Troponin I 0.019 NT-Pro-B Natriuret Pep 279 Impressions: Chest X-Ray 03/15/18 04:22 IMPRESSION: Mild cardiomegaly, unchanged from prior study. copyright 2010 [employer]- All Rights Reserved Assessment & Plan - Diagnosis (1) SVT (supraventricular tachycardia) Is this a current diagnosis for this admission?: Yes Plan: 03/15/2018 patient was admitted for SVT associated with few runs of V. tach last night. She was placed on amiodarone. Converted to sinus rhythm. As per the eyewear manufacturing supervisor recommendations amiodarone was discontinued and she was placed on Cardizem drip. This SVT/rapid heart rate probably secondary to COPD exace rbation. Patient is not on albuterol nebs. 03/16/2018-because of the atrial fibrillation and tachycardia patient is on Cardizem drip. Drip was increased to 5 mg/h to control the heart rate. Dr. Joao montano is following the patient the cause for this A. fib with rapid ventricular rate probably secondary to underlying COPD. Plan is to continue the present management. BNP is 280. 03/17/2018 patient still on Cardizem drip. The heart rate is persistently high because of the underlying COPD also patient's advanced dementia with anxiety and agitation. plan is to continue the present management. (2) Acute exacerbation of chronic obstructive airways disease Is this a current diagnosis for this admission?: Yes Plan: 03/15/2018-patient is on Xopenex nebulizations, Flonase and flutter wall flutter wall treatments not on albuterol nebs not on IV Solu-Medrol because of the SVT. Chest x-ray there is no evidence of pneumonia. COPD secondary to chronic smoking. I am going to put her on nicotine patch. 03/16-patient is pulse ox is 94% on 2 L. Patient is on scheduled nebulizations but she is not on albuterol because of the high heart rate. She is also not on IV Solu-Medrol because of the A. fib with rapid ventricular rate. 03/17/2018-pulse ox is 90% she was placed on oxygen 2 L via nasal cannula. She is getting a nebulizations treatment. She is not on IV Solu-Medrol not on albuterol because of the rapid heart rate. (3) Cognitive impairment Is this a current diagnosis for this admission?: Yes Plan: 03/15/2018 patient has advanced dementia with cognitive impairment. Plan is supportive care. She was agitated this morning report of the monitor worker high to pull off the IV line so we placed on a soft restraints. And also started on Ativan 1 mg IV every 6 as needed. 03/16/2018 patient has advanced dementia with cognitive impairment. In my opinion she is unable to take any healthcare conditions. She is expressing desire to go home every 5 minutes wants to smoke outside. [facility] nurses talked to her several times without any success. But the patient's daughter wants to keep the patient in the hospital until she is stable. 03/17/2018-patient has advanced dementia with cognitive impairment she has behavioral problems with agitation and anxiety. Psych consult was requested waiting further recommendations. She is getting Geodon on as needed basis. (4) Current everyday smoker Is this a current diagnosis for this admission?: Yes Plan: 03/15/2018 patient is a chronic smoker requesting to go out to smoke. She agreed to be on a nicotine patch. 03/16/2017 patient is a chronic smoker she was a nicotine patch on daily basis. 03/17/2018 patient history of chronic smoking she was placed on nicotine patch. - Time Time Spent with patient: 15-24 minutes Medications reviewed and adjusted accordingly: Yes
[2018-03-18] MEDS: LEVALBUTEROL HCL NEB 1.25 MG/3 ML AMPUL NEB SCH ×3 (00:21→17:07)
[2018-03-18] MEDS: IPRATROPIUM BROMIDE 0.02% NEB 0.5 MG/2.5 ML AMPUL NEB SCH ×3 (00:21→17:07)
[2018-03-18] MEDS: DILTIAZEM HCL/D5W 125 MG/125 ML RTUINJ IV PRN ×3 (00:40→21:18)
[2018-03-18] MEDS: HALOPERIDOL LACTATE INJ 5 MG/1 ML VIAL IV PRN (00:57)
[2018-03-18] MEDS: DOCUSATE SODIUM 100 MG CAPSULE PO SCH ×2 (10:08→17:30)
[2018-03-18] MEDS: FLUTICASONE NASAL SPRAY 50 MCG/SPRY 120 SPRAY/16 GM NASL SCH ×2 (10:08→21:56)
[2018-03-18] MEDS: NICOTINE 21 MG/24 HR PATCH.TD24 TD SCH (10:08)
[2018-03-18] MEDS: OXYCODONE-ACETAMINOPHEN 5-325 MG TABLET PO PRN (17:30)
--- NOTE | 2018-03-18 17:47 | PROGRESS NOTE E ---
Progress Note NAME: BILL FERNANDEZ : 1945 AGE: 72Y DATE: 03/18/2018 ROOM: 329 SUBJECTIVE: The patient is a pleasant 72-year-old female who has a past medical history of COPD, she was admitted with COPD exacerbation, tachycardia. She was found to have supraventricular tachycardia. She had intermittent V-tach. There is no fever or chills. The patient was seen by psych. She was placed on Geodon and Haldol IM. She is a little better but she is still on a Cardizem drip. She was also on an amiodarone drip, but it was discontinued. OBJECTIVE: GENERAL: The patient is lying in bed, comfortable, not in distress. VITAL SIGNS: Blood pressure 129/78, heart rate is 76, afebrile, saturation is 89% on 2 liters. HEENT: Head normocephalic, atraumatic. Pupils round, reactive to light and accommodation bilaterally. Extraocular movements intact. Ears: Tympanic membranes intact bilaterally. No discharge from the ear. No discharge from the nose. NECK: Supple, no increased JVD, no thyromegaly, no lymphadenopathy. CARDIOVASCULAR: Normal S1, S2. Regular rate and rhythm. No murmur, no gallops. RESPIRATORY: There are bilateral crackles and decreased air entry bilaterally. ABDOMEN: Soft. MUSCULOSKELETAL: No edema. NEUROLOGIC: Awake, alert. SKIN: No rash. LABORATORY DATA: White count blood 12.3, hemoglobin 13.4. Creatinine 0.5. ASSESSMENT AND PLAN: 1. SUPRAVENTRICULAR TACHYCARDIA. Cardiology on board. Continue Cardizem drip. Amiodarone was discontinued. 2. ACUTE EXACERBATION OF CHRONIC OBSTRUCTIVE PULMONARY DISEASE. Continue Xopenex, nebulizer, and IV Solu-Medrol. 3. ACTIVE SMOKING. MEDICAL NECESSITY: The patient is on IV Cardizem, continue IV Cardizem. DICTATING PHYSICIAN: JESSICA BROWNING M.D. [id number] PHY#: [id number] ID: [id number] JOB#: [id number] ACCT: [id number] cc: >
[2018-03-19] MEDS: LEVALBUTEROL HCL NEB 1.25 MG/3 ML AMPUL NEB SCH ×4 (00:38→23:53)
[2018-03-19] MEDS: IPRATROPIUM BROMIDE 0.02% NEB 0.5 MG/2.5 ML AMPUL NEB SCH ×4 (00:38→23:53)
[2018-03-19 06:10] LABS: ALBUMIN 3.4 g/dL (3.5-5.0); ANION GAP 5 (5-19); BLOOD UREA NITROGEN 15 mg/dL (7-20); CALCIUM 8.7 mg/dL (8.4-10.2); CARBON DIOXIDE 29 mmol/L (22-30); CHLORIDE 100 mmol/L (98-107); GLUCOSE 137 mg/dL (75-110); PHOSPHORUS 3.7 mg/dL (2.5-4.5); POTASSIUM 4.1 mmol/L (3.6-5.0); SODIUM 133.7 mmol/L (137-145)
[2018-03-19 06:14] LABS: ABSOLUTE BASOPHILS # (AUTO) 0.1 10^3/uL (0.0-0.2); ABSOLUTE EOSINOPHILS # (AUTO) 0.1 10^3/uL (0.0-0.6); ABSOLUTE LYMPHOCYTES (AUTO) 1.6 10^3/uL (0.5-4.7); ABSOLUTE MONOCYTES (AUTO) 1.1 10^3/uL (0.1-1.4); ABSOLUTE NEUT (AUTO) 15.2 10^3/uL (1.7-8.2); BASOPHILS % (AUTO) 0.6 % (0-2); EOSINOPHILS % (AUTO) 0.7 % (0-6); LYMPHOCYTES % (AUTO) 8.9 % (13-45); MEAN CORPUSCULAR HEMOGLOBIN 27.8 pg (27.0-33.4); MEAN CORPUSCULAR HGB CONC 33.3 g/dL (32.0-36.0); MEAN CORPUSCULAR VOLUME 84 fl (80-97); MONOCYTES % (AUTO) 6.1 % (3-13); PLATELET COUNT 285 10^3/uL (150-450); RED BLOOD COUNT 4.67 10^6/uL (3.72-5.28); RED CELL DISTRIBUTION WIDTH 15.8 % (11.5-14.0); SEGMENTED NEUTROPHILS % (AUTO) 83.7 % (42-78); TOTAL CELLS COUNTED % (AUTO) 100 %; WHITE BLOOD COUNT 18.2 10^3/uL (4.0-10.5)
[2018-03-19] MEDS: NICOTINE 21 MG/24 HR PATCH.TD24 TD SCH (10:05)
[2018-03-19] MEDS: FLUTICASONE NASAL SPRAY 50 MCG/SPRY 120 SPRAY/16 GM NASL SCH ×2 (10:05→22:02)
[2018-03-19] MEDS: DOCUSATE SODIUM 100 MG CAPSULE PO SCH ×2 (10:06→18:22)
[2018-03-19 13:41] LABS: CREATINE KINASE MB 1.48 ng/mL (<4.55); TROPONIN I 0.014 ng/mL
--- NOTE | 2018-03-19 16:02 | PROGRESS NOTE E ---
Progress Note NAME: BILL FERNANDEZ : 1945 AGE: 72Y DATE: 03/19/2018 ROOM: 329 SUBJECTIVE: The patient is a pleasant 72-year-old female who had a past medical history of COPD. She was admitted with COPD exacerbation, supraventricular tachycardia. She had intermittent Vtach. Seen by Cardiology. The patient is now on a Cardizem drip. She was also seen by Psych for adjustment of her antipsychotic medications. OBJECTIVE: GENERAL: Patient lying in bed, comfortable, not in distress. VITAL SIGNS: Blood pressure is 146/71, respiratory rate is 18, heart rate 62, saturation is 96% on 2 liters. HEENT: Head normocephalic, atraumatic. Pupils round, reactive to the light and accommodation bilaterally. Extraocular movements intact. Ears: Tympanic membranes intact bilaterally. No discharge from the ears. No discharge from the nose. NECK: Supple. No increased JVD. No thyromegaly, no lymphadenopathy. CARDIOVASCULAR: Normal S1, S2. Regular rate and rhythm. No murmur, no gallop. RESPIRATORY: Lungs: Bilateral crackles/wheeze. ABDOMEN: Soft, nontender. MUSCULOSKELETAL: No edema. NEUROLOGICAL: Awake. LABORATORY DATA: White blood count is 18, hemoglobin is 13, hematocrit is 39. Sodium 133, potassium 4.1, creatinine 0.5. ASSESSMENT: 1. SUPRAVENTRICULAR TACHYCARDIA. Cardiology involved. The patient is on Cardizem drip. 2. ACUTE COPD EXACERBATION. She is on Xopenex nebulizer, IV Solu-Medrol. Active smoking. PLAN: Patient is still on Cardizem drip IV. Will switch to p.o. MEDICAL NECESSITY: The patient is still on Cardizem drip IV. TIME SPENT: Twenty-five minutes. DICTATING PHYSICIAN: JESSICA BROWNING M.D. [id number] PHY#: [id number] ID: [id number] JOB#: [id number] ACCT: [id number] cc: >
[2018-03-19] MEDS: OXYCODONE-ACETAMINOPHEN 5-325 MG TABLET PO PRN (16:20)
[2018-03-19] MEDS ORDERED: DILTIAZEM HCL/D5W 125 MG/125 ML RTUINJ IV ONE (18:04)
[2018-03-19] MEDS: DILTIAZEM HCL/D5W 125 MG/125 ML RTUINJ IV PRN (18:20)
--- NOTE | 2018-03-19 23:48 | EKG REPORT ---
SEVERITY:- OTHERWISE NORMAL ECG - SINUS RHYTHM ATRIAL PREMATURE COMPLEX : Confirmed by: Mook Castillo 19-Mar-2018 23:48:01
[2018-03-20] MEDS: ZIPRASIDONE MESYLATE INJ/PF 20 MG SDV IM PRN (01:13)
[2018-03-20] MEDS: HALOPERIDOL LACTATE INJ 5 MG/1 ML VIAL IV PRN (04:24)
[2018-03-20] MEDS ORDERED: DILTIAZEM HCL/D5W 125 MG/125 ML RTUINJ IV ONE (04:31)
[2018-03-20] MEDS: DILTIAZEM HCL/D5W 125 MG/125 ML RTUINJ IV PRN ×2 (07:01→16:26)
[2018-03-20] MEDS: IPRATROPIUM BROMIDE 0.02% NEB 0.5 MG/2.5 ML AMPUL NEB SCH ×2 (08:33→16:33)
[2018-03-20] MEDS: LEVALBUTEROL HCL NEB 1.25 MG/3 ML AMPUL NEB SCH ×2 (08:33→16:33)
[2018-03-20] MEDS: DOCUSATE SODIUM 100 MG CAPSULE PO SCH ×2 (09:36→17:56)
[2018-03-20] MEDS: NICOTINE 21 MG/24 HR PATCH.TD24 TD SCH (09:37)
[2018-03-20] MEDS: FLUTICASONE NASAL SPRAY 50 MCG/SPRY 120 SPRAY/16 GM NASL SCH ×2 (09:38→22:13)
[2018-03-20] MEDS ORDERED: METOPROLOL TARTRATE 50 MG TABLET PO ONE (13:45)
[2018-03-20 15:09] LABS: ANION GAP 9 (5-19); BLOOD UREA NITROGEN 11 mg/dL (7-20); CALCIUM 8.9 mg/dL (8.4-10.2); CARBON DIOXIDE 29 mmol/L (22-30); CHLORIDE 101 mmol/L (98-107); GLUCOSE 114 mg/dL (75-110); POTASSIUM 3.8 mmol/L (3.6-5.0); SODIUM 138.7 mmol/L (137-145)
[2018-03-20] MEDS: BUDESONIDE/FORMOTEROL 80-4.5 MCG 60 PUFF/6.9 GM MDI IH SCH ×2 (15:25→22:04)
--- NOTE | 2018-03-20 19:03 | XCELERA REPORT ---
[address] [address] Transthoracic Echocardiogram Report Name: BILL FERNANDEZ Age: 72 yrs Gender: Female : 1945 Patient Status: Inpatient Patient Location: [address] [place] [address] Study Date: 03/20/2018 03:24 PM Height: 62 in Weight: 191 lb BSA: 1.9 m2 Procedure: A two-dimensional transthoracic echocardiogram with color flow and Doppler was performed. The study was technically limited with all images being suboptimal in quality. Reason For Study: tachycardia History: tachycardia. Ordering Physician: SOPHIE TOTH Performed By: Shannan Mendez Interpretation Summary The left ventricle is normal in size. There is normal left ventricular wall thickness. LV EF is 60% Left ventricular systolic function is normal. Doppler measurements suggest normal left ventricular diastolic function The left ventricular wall motion is normal. There is no thrombus. There is no ventricular septal defect visualized. The right ventricle is mildly dilated. The right atrium is mildly dilated. The left atrial size is normal. The interatrial septum is intact with no evidence for an atrial septal defect. There is no evidence of mitral valve prolapse. There is no vegetation seen on the mitral valve. There is no mitral valve stenosis. There is a mild to moderate amount of mitral regurgitation There is no aortic valvular vegetation. Visually no . No aortic regurgitation is present. There is no tricuspid stenosis. There is a mild amount of tricuspid regurgitation There is mild pulmonary hypertension by echo RVSP is 36 to 41 mm of Hg , with RA mean of 5 to 10. There is no pulmonic valvular stenosis. There is a trace amount of pulmonic regurgitation The aortic root is not well visualized but is probably normal size. The inferior vena cava appeared normal and decreased > 50% with respiration (RAP 5-10 mmHg) There is no pericardial effusion. MMode/2D Measurements & Calculations RVDd: 4.1 cm LVIDd: 4.5 cm FS: 28.4 % Ao root diam: 2.9 cm IVSd: 0.98 cm LVIDs: 3.3 cm EDV(Teich): 94.3 ml Ao root area: 6.7 cm2 LVPWd: 1.0 cm ESV(Teich): 42.6 ml LA dimension: 4.2 cm EF(Teich): 54.9 % Doppler Measurements & Calculations MV E max brook: MV P1/2t max brook: LV V1 max PG: PA V2 max: 83.9 cm/sec 84.4 cm/sec 2.2 mmHg 75.5 cm/sec MV A max brook: MV P1/2t: 76.3 msec LV V1 max: PA max P.0 cm/sec MVA(P1/2t): 2.9 cm2 74.0 cm/sec 2.3 mmHg MV E/A: 1.1 MV dec slope: 323.9 cm/sec2 MV dec time: 0.26 sec PI end-d brook: TR max brook: MV P1/2t-pr_phl: 174.8 cm/sec 278.0 cm/sec 76.3 msec TR max P.9 mmHg Left Ventricle The left ventricle is normal in size. There is normal left ventricular wall thickness. LV EF is 60%. Left ventricular systolic function is normal. Doppler measurements suggest normal left ventricular diastolic function. The left ventricular wall motion is normal. There is no thrombus. There is no ventricular septal defect visualized. Right Ventricle The right ventricle is mildly dilated. The right ventricular systolic function is normal. Atria The right atrium is mildly dilated. The left atrial size is normal. The interatrial septum is intact with no evidence for an atrial septal defect. Mitral Valve There is no evidence of mitral valve prolapse. There is no vegetation seen on the mitral valve. There is no mitral valve stenosis. There is a mild to moderate amount of mitral regurgitation. Aortic Valve There is no aortic valvular vegetation. Visually no . No aortic regurgitation is present. Tricuspid Valve There is no tricuspid stenosis. There is a mild amount of tricuspid regurgitation. There is mild pulmonary hypertension by echo. RVSP is 36 to 41 mm of Hg , with RA mean of 5 to 10. Pulmonic Valve There is no pulmonic valvular stenosis. There is a trace amount of pulmonic regurgitation. Great Vessels The aortic root is not well visualized but is probably normal size. The inferior vena cava appeared normal and decreased > 50% with respiration (RAP 5-10 mmHg). Effusions There is no pericardial effusion. : SOPHIE TOTH > Delilah Parker
--- NOTE | 2018-03-20 19:50 | PDOC PROGRESS REPORT ---
Subjective Progress Note for:: 03/20/18 Reason For Visit: SVT, COPD EXACERBATION, TOBACCO Physical Exam Vital Signs: Temp Pulse Resp BP Pulse Ox 98.8 F 76 16 119/58 L 96 03/20/18 18:47 03/20/18 18:47 03/20/18 18:47 03/20/18 18:47 03/20/18 18:47 Intake & Output 03/19/18 03/20/18 03/21/18 06:59 06:59 06:59 Intake Total 245 1540 568 Output Total 250 Balance 245 1290 568 Weight 194 lb 0.108 oz 191 lb 9.307 oz General appearance: PRESENT: no acute distress Head exam: PRESENT: atraumatic, normocephalic Eye exam: PRESENT: EOMI. ABSENT: conjunctival injection, scleral icterus Ear exam: PRESENT: normal external ear exam Mouth exam: PRESENT: tongue midline Neck exam: ABSENT: tracheal deviation Respiratory exam: PRESENT: clear to auscultation diann, symmetrical Cardiovascular exam: PRESENT: +S1, +S2 Pulses: PRESENT: +2 pedal pulses bilateral GI/Abdominal exam: PRESENT: normal bowel sounds, soft. ABSENT: tenderness Extremities exam: ABSENT: pedal edema Neurological exam: PRESENT: alert, awake, oriented to person, CN II-XII grossly intact. ABSENT: oriented to place, oriented to time, oriented to situation Skin exam: PRESENT: dry, warm Results Laboratory Results: 03/19/18 05:16 03/20/18 14:33 03/20/18 14:33 Sodium 138.7 Potassium 3.8 Chloride 101 Carbon Dioxide 29 Anion Gap 9 BUN 11 Creatinine 0.54 Est GFR ( Amer) > 60 Est GFR (Non-Af Amer) > 60 Glucose 114 H Calcium 8.9 Magnesium 2.0 Vitamin B12 378.0 03/15/18 16:34 Blood Blood Culture - Final NO GROWTH IN 5 DAYS 03/15/18 03:27 Blood Blood Culture - Final NO GROWTH IN 5 DAYS 03/15/18 03/15/18 03/15/18 03:27 16:34 20:35 Creatine Kinase CK-MB (CK-2) 1.86 1.82 Troponin I 0.026 < 0.012 0.014 NT-Pro-B Natriuret Pep 03/16/18 03/16/18 03/16/18 02:21 02:21 02:21 Creatine Kinase 35 CK-MB (CK-2) 1.41 Troponin I 0.019 NT-Pro-B Natriuret Pep 279 03/19/18 03/19/18 13:00 13:00 Creatine Kinase 49 CK-MB (CK-2) 1.48 Troponin I 0.014 NT-Pro-B Natriuret Pep Impressions: Chest X-Ray 03/15/18 04:22 IMPRESSION: Mild cardiomegaly, unchanged from prior study. copyright 2011 [employer]- All Rights Reserved Assessment & Plan - Diagnosis (1) SVT (supraventricular tachycardia) Is this a current diagnosis for this admission?: Yes Plan: Cardiology has been consulted and I appreciate his assistance. Currently patient is off the Cardizem drip and on metoprolol 50 mg twice daily. (2) Acute exacerbation of chronic obstructive airways disease Is this a current diagnosis for this admission?: Yes Plan: Continue on Symbicort, Atrovent and Xopenex (3) Cognitive impairment Is this a current diagnosis for this admission?: Yes Plan: She has a history of dementia as per family. We do not know what medication she was on prior to coming to the hospital. We have asked psych to evaluate her and they recommend Depakote and was brought at this time. [facility] She has been agitated at times and there have been required to give her IV medications. (4) Current everyday smoker Is this a current diagnosis for this admission?: Yes Plan: Noted
[2018-03-20] MEDS ORDERED: DILTIAZEM HCL/D5W 125 MG/125 ML RTUINJ IV PRN (21:53)
[2018-03-20] MEDS ORDERED: METOPROLOL TARTRATE 50 MG TABLET PO SCH (22:00)
[2018-03-20] MEDS: BUSPIRONE HCL 10 MG TABLET PO SCH (22:02)
[2018-03-20] MEDS ORDERED: METOPROLOL TARTRATE 25 MG TABLET PO ONE (22:15)
[2018-03-20] MEDS: DIVALPROEX SODIUM 250 MG TAB.SR.24H PO SCH (22:48)
[2018-03-21] MEDS: LEVALBUTEROL HCL NEB 1.25 MG/3 ML AMPUL NEB SCH ×4 (00:17→23:35)
[2018-03-21] MEDS: IPRATROPIUM BROMIDE 0.02% NEB 0.5 MG/2.5 ML AMPUL NEB SCH ×4 (00:17→23:35)
[2018-03-21] MEDS: HALOPERIDOL LACTATE INJ 5 MG/1 ML VIAL IV PRN (02:51)
[2018-03-21 06:40] LABS: ABSOLUTE BASOPHILS # (AUTO) 0.1 10^3/uL (0.0-0.2); ABSOLUTE EOSINOPHILS # (AUTO) 0.1 10^3/uL (0.0-0.6); ABSOLUTE LYMPHOCYTES (AUTO) 1.2 10^3/uL (0.5-4.7); ABSOLUTE MONOCYTES (AUTO) 0.8 10^3/uL (0.1-1.4); ABSOLUTE NEUT (AUTO) 5.7 10^3/uL (1.7-8.2); BASOPHILS % (AUTO) 0.9 % (0-2); EOSINOPHILS % (AUTO) 1.2 % (0-6); HEMATOCRIT 40.8 % (36.0-47.0); HEMOGLOBIN 13.5 g/dL (12.0-15.5); MEAN CORPUSCULAR HEMOGLOBIN 27.7 pg (27.0-33.4); MEAN CORPUSCULAR VOLUME 84 fl (80-97); MONOCYTES % (AUTO) 9.6 % (3-13); PLATELET COUNT 270 10^3/uL (150-450); RED BLOOD COUNT 4.88 10^6/uL (3.72-5.28); RED CELL DISTRIBUTION WIDTH 15.3 % (11.5-14.0); SEGMENTED NEUTROPHILS % (AUTO) 73.3 % (42-78); TOTAL CELLS COUNTED % (AUTO) 100 %; WHITE BLOOD COUNT 7.8 10^3/uL (4.0-10.5)
[2018-03-21 06:51] LABS: ANION GAP 5 (5-19); BLOOD UREA NITROGEN 8 mg/dL (7-20); CALCIUM 8.6 mg/dL (8.4-10.2); CARBON DIOXIDE 32 mmol/L (22-30); CHLORIDE 102 mmol/L (98-107); GLUCOSE 113 mg/dL (75-110); POTASSIUM 3.3 mmol/L (3.6-5.0); SODIUM 138.7 mmol/L (137-145)
[2018-03-21] MEDS ORDERED: POTASSIUM CHLORIDE 20 MEQ/15 ML UDCUP PO ONE (07:48)
[2018-03-21] MEDS: BUSPIRONE HCL 10 MG TABLET PO SCH ×2 (09:03→22:55)
[2018-03-21] MEDS: NICOTINE 21 MG/24 HR PATCH.TD24 TD SCH (09:03)
[2018-03-21] MEDS: DIVALPROEX SODIUM 250 MG TAB.SR.24H PO SCH ×2 (09:04→22:54)
[2018-03-21] MEDS: DOCUSATE SODIUM 100 MG CAPSULE PO SCH ×2 (09:04→18:04)
[2018-03-21] MEDS: FLUTICASONE NASAL SPRAY 50 MCG/SPRY 120 SPRAY/16 GM NASL SCH ×2 (09:04→22:53)
[2018-03-21] MEDS: BUDESONIDE/FORMOTEROL 80-4.5 MCG 60 PUFF/6.9 GM MDI IH SCH ×2 (09:04→22:54)
[2018-03-21] MEDS: ZIPRASIDONE MESYLATE INJ/PF 20 MG SDV IM PRN ×2 (09:37→16:39)
[2018-03-21] MEDS ORDERED: METOPROLOL TARTRATE 50 MG TABLET PO SCH ×2 (10:00→12:00)
[2018-03-21] MEDS ORDERED: METOPROLOL TARTRATE PF/INJ 5 MG/5 ML SDV IV ONE ×2 (11:05→11:30)
[2018-03-21] MEDS ORDERED: DILTIAZEM HCL/D5W 125 MG/125 ML RTUINJ IV PRN (13:45)
[2018-03-21] MEDS ORDERED: METOPROLOL TARTRATE 25 MG TABLET PO ONE (14:00)
[2018-03-21] MEDS ORDERED: DIGOXIN INJ 0.5 MG/2 ML AMPULE IV ONE (14:00)
--- NOTE | 2018-03-21 14:23 | PDOC PROGRESS REPORT ---
Subjective Progress Note for:: 03/21/18 Subjective:: Saw patient at bedside this morning. Patient is laying with her eyes closed. She does respond to verbal commands but seemed more sleepy than usual. As per nursing they just gave her her Depakote and BuSpar just now. I am not sure if the medication or she is just sleepy. She tells me she has no acute complaints at this time. Denies chest pain, shortness breath, abdominal pain, nausea or vomiting or dizziness. Reason For Visit: SVT, COPD EXACERBATION, TOBACCO Physical Exam Vital Signs: Temp Pulse Resp BP Pulse Ox 98.2 F 151 H 16 117/68 94 03/21/18 11:44 03/21/18 11:44 03/21/18 11:44 03/21/18 11:44 03/21/18 11:44 Intake & Output 03/20/18 03/21/18 03/22/18 06:59 06:59 06:59 Intake Total 1540 675 Output Total 250 Balance 1290 675 Weight 191 lb 9.307 oz 189 lb 2.506 oz General appearance: PRESENT: no acute distress, disheveled Head exam: PRESENT: atraumatic, normocephalic Eye exam: PRESENT: EOMI. ABSENT: conjunctival injection, scleral icterus Ear exam: PRESENT: normal external ear exam Mouth exam: PRESENT: moist, tongue midline Neck exam: ABSENT: tracheal deviation Respiratory exam: PRESENT: clear to auscultation diann, symmetrical Cardiovascular exam: PRESENT: +S1, +S2 GI/Abdominal exam: PRESENT: normal bowel sounds, soft. ABSENT: tenderness Extremities exam: ABSENT: pedal edema Neurological exam: PRESENT: alert, awake, oriented to person, oriented to place, oriented to time, oriented to situation, CN II-XII grossly intact Skin exam: PRESENT: dry, warm Results Laboratory Results: 03/21/18 05:15 03/21/18 05:15 03/20/18 03/21/18 03/21/18 14:33 05:15 05:15 WBC 7.8 RBC 4.88 Hgb 13.5 Hct 40.8 MCV 84 MCH 27.7 MCHC 33.0 RDW 15.3 H Plt Count 270 Seg Neutrophils % 73.3 Lymphocytes % 15.0 Monocytes % 9.6 Eosinophils % 1.2 Basophils % 0.9 Absolute Neutrophils 5.7 Absolute Lymphocytes 1.2 Absolute Monocytes 0.8 Absolute Eosinophils 0.1 Absolute Basophils 0.1 Sodium 138.7 138.7 Potassium 3.8 3.3 L Chloride 101 102 Carbon Dioxide 29 32 H Anion Gap 9 5 BUN 11 8 Creatinine 0.54 0.47 L Est GFR ( Amer) > 60 > 60 Est GFR (Non-Af Amer) > 60 > 60 Glucose 114 H 113 H Calcium 8.9 8.6 Magnesium 2.0 2.1 Vitamin B12 378.0 03/15/18 16:34 Blood Blood Culture - Final NO GROWTH IN 5 DAYS 03/15/18 03/15/18 03/15/18 03:27 16:34 20:35 Creatine Kinase CK-MB (CK-2) 1.86 1.82 Troponin I 0.026 < 0.012 0.014 NT-Pro-B Natriuret Pep 03/16/18 03/16/18 03/16/18 02:21 02:21 02:21 Creatine Kinase 35 CK-MB (CK-2) 1.41 Troponin I 0.019 NT-Pro-B Natriuret Pep 279 03/19/18 03/19/18 13:00 13:00 Creatine Kinase 49 CK-MB (CK-2) 1.48 Troponin I 0.014 NT-Pro-B Natriuret Pep Impressions: Chest X-Ray 03/15/18 04:22 IMPRESSION: Mild cardiomegaly, unchanged from prior study. copyright 2011 [employer]- All Rights Reserved Assessment & Plan - Diagnosis (1) SVT (supraventricular tachycardia) Is this a current diagnosis for this admission?: Yes Plan: Cardiology has been consulted and I appreciate his assistance. This morning when I saw her she was not on any beta-blockers as it was discontinued by cardio logy. He seems to be less than 100 at this time when I see him this morning. I spoke with cardiology last night and he told me that she has had a history of SVT or atrial flutter for a long time and was on medication prior to going to [place] to live with her son. Supposedly over at [place] her medication. Because she was doing well. I am not sure what medication she was on. Cardiology still deciding on whether to put her back on medicine or to keep her off of it. I appreciate their assistance and continue to follow. (2) Acute exacerbation of chronic obstructive airways disease Is this a current diagnosis for this admission?: Yes (3) Cognitive impairment Is this a current diagnosis for this admission?: Yes Plan: Psych evaluated her and started her on Depakote and BuSpar at this time. We will see how she does in the next few days. She has IV medications ordered for acute anxiety or agitation's. This morning she seemed much more calm. No events overnight noted to me by nursing (4) Current everyday smoker Is this a current diagnosis for this admission?: Yes Plan: Noted-counseled her on cessation. - Plan Summary Plan Summary: Hopefully I can discharge her once her heart rate is well controlled. She will need follow-up with PCP and psychiatry.
[2018-03-21] MEDS: METOPROLOL TARTRATE 100 MG TABLET PO SCH (22:55)
[2018-03-22] MEDS: LEVALBUTEROL HCL NEB 1.25 MG/3 ML AMPUL NEB SCH ×2 (07:47→16:37)
[2018-03-22] MEDS: IPRATROPIUM BROMIDE 0.02% NEB 0.5 MG/2.5 ML AMPUL NEB SCH ×2 (07:47→16:37)
[2018-03-22] MEDS ORDERED: METOPROLOL TARTRATE PF/INJ 5 MG/5 ML SDV IV ONE (08:30)
[2018-03-22] MEDS: BUSPIRONE HCL 10 MG TABLET PO SCH ×2 (09:05→22:59)
[2018-03-22] MEDS: DOCUSATE SODIUM 100 MG CAPSULE PO SCH ×2 (09:05→16:59)
[2018-03-22] MEDS: FLUTICASONE NASAL SPRAY 50 MCG/SPRY 120 SPRAY/16 GM NASL SCH ×2 (09:06→23:00)
[2018-03-22] MEDS: DIVALPROEX SODIUM 250 MG TAB.SR.24H PO SCH ×2 (09:06→22:59)
[2018-03-22] MEDS: NICOTINE 21 MG/24 HR PATCH.TD24 TD SCH (09:06)
[2018-03-22] MEDS: BUDESONIDE/FORMOTEROL 80-4.5 MCG 60 PUFF/6.9 GM MDI IH SCH ×2 (09:07→23:00)
[2018-03-22] MEDS ORDERED: DIGOXIN INJ 0.5 MG/2 ML AMPULE IV ONE (10:00)
[2018-03-22] MEDS: METOPROLOL TARTRATE 100 MG TABLET PO SCH ×2 (12:06→22:58)
[2018-03-22 14:02] LABS: ANION GAP 5 (5-19); BLOOD UREA NITROGEN 12 mg/dL (7-20); CARBON DIOXIDE 29 mmol/L (22-30); CHLORIDE 103 mmol/L (98-107); GLUCOSE 100 mg/dL (75-110); POTASSIUM 4.2 mmol/L (3.6-5.0); SODIUM 137.3 mmol/L (137-145)
--- NOTE | 2018-03-22 18:17 | PDOC PROGRESS REPORT ---
Subjective Progress Note for:: 03/22/18 Subjective:: Saw patient at bedside. He was not happy to see me. She was laying in bed with eyes closed. After answering the first few questions she told me to go away. She tells me "why are you asking me these questions". I tried to explain to her that I am asking her to find out how she feels today and get more information so I can help her better. She tells me "you do not need to know any of this go away". My exam was limited today since patient was not very cooperative with me today Reason For Visit: SVT, COPD EXACERBATION, TOBACCO Physical Exam Vital Signs: Temp Pulse Resp BP Pulse Ox 98.6 F 75 16 139/79 H 97 03/22/18 03:21 03/22/18 16:37 03/22/18 16:37 03/22/18 16:13 03/22/18 16:37 Intake & Output 03/21/18 03/22/18 03/23/18 06:59 06:59 06:59 Intake Total 868 656 9824 Balance 044 780 8418 Weight 189 lb 2.506 oz 188 lb 11.451 oz General appearance: PRESENT: no acute distress, disheveled, obese, other - Laying in bed with eyes closed Head exam: PRESENT: atraumatic, normocephalic Ear exam: PRESENT: normal external ear exam Neck exam: ABSENT: tracheal deviation Respiratory exam: PRESENT: clear to auscultation diann, symmetrical Cardiovascular exam: PRESENT: +S1, +S2 Pulses: PRESENT: +2 pedal pulses bilateral GI/Abdominal exam: PRESENT: normal bowel sounds, soft. ABSENT: tenderness Extremities exam: ABSENT: pedal edema Neurological exam: PRESENT: oriented to person, CN II-XII grossly intact, other - Eyes closed but does respond to questions-did not want to answer most of my questions-she keeps saying I do not know to most of them Skin exam: PRESENT: dry, warm Results Laboratory Results: 03/21/18 05:15 03/22/18 13:11 03/22/18 13:11 Sodium 137.3 Potassium 4.2 Chloride 103 Carbon Dioxide 29 Anion Gap 5 BUN 12 Creatinine 0.50 L Est GFR ( Amer) > 60 Est GFR (Non-Af Amer) > 60 Glucose 100 Calcium 9.0 03/15/18 03/15/18 03/15/18 03:27 16:34 20:35 Creatine Kinase CK-MB (CK-2) 1.86 1.82 Troponin I 0.026 < 0.012 0.014 NT-Pro-B Natriuret Pep 03/16/18 03/16/18 03/16/18 02:21 02:21 02:21 Creatine Kinase 35 CK-MB (CK-2) 1.41 Troponin I 0.019 NT-Pro-B Natriuret Pep 279 03/19/18 03/19/18 13:00 13:00 Creatine Kinase 49 CK-MB (CK-2) 1.48 Troponin I 0.014 NT-Pro-B Natriuret Pep Impressions: Chest X-Ray 03/15/18 04:22 IMPRESSION: Mild cardiomegaly, unchanged from prior study. copyright 2011 [email or web address]- All Rights Reserved Assessment & Plan - Diagnosis (1) SVT (supraventricular tachycardia) Is this a current diagnosis for this admission?: Yes Plan: Cardiology has been consulted and I appreciate his assistance. Initially she was started on metoprolol but now cardiology has started her on a Cardizem drip. Her heart rate seems to be fluctuating anywhere between 70 and 160s. While I was watching on the telemetry as she laid on bed it was in the 80s but when I went in there to speak to her and she became agitated I came back out and her heart rate was in the 130s. After a few moment it dropped down again to the 70s. (2) Acute exacerbation of chronic obstructive airways disease Is this a current diagnosis for this admission?: Yes Plan: Continue on Symbicort, Atrovent and Xopenex. I think her breathing is doing well she is not on oxygen at this time. (3) Cognitive impairment Is this a current diagnosis for this admission?: Yes Plan: Psych evaluated her and started her on Depakote and BuSpar at this time. We will see how she does in the next few days. She has IV medications ordered for acute anxiety or agitation's. She seems a lot more lethargic and sleepy since she has been started on the Depakote and BuSpar. I am hoping this will help her stay calm and cooperative while we try to help her with her medical problems. (4) Current everyday smoker Is this a current diagnosis for this admission?: Yes Plan: Noted-counseled her on cessation. Today I asked her if she will quit smoking and she told me no. - Plan Summary Plan Summary: She can be discharged once we have better control of her heart rate and I am awaiting cardiology recommendations and clearance.
[2018-03-23] MEDS: LEVALBUTEROL HCL NEB 1.25 MG/3 ML AMPUL NEB SCH ×3 (00:34→16:46)
[2018-03-23] MEDS: IPRATROPIUM BROMIDE 0.02% NEB 0.5 MG/2.5 ML AMPUL NEB SCH ×3 (00:34→16:46)
[2018-03-23] MEDS: DIVALPROEX SODIUM 250 MG TAB.SR.24H PO SCH ×2 (09:20→23:16)
[2018-03-23] MEDS: FLUTICASONE NASAL SPRAY 50 MCG/SPRY 120 SPRAY/16 GM NASL SCH ×2 (09:20→22:29)
[2018-03-23] MEDS: METOPROLOL TARTRATE 100 MG TABLET PO SCH ×2 (09:20→23:16)
[2018-03-23] MEDS: DOCUSATE SODIUM 100 MG CAPSULE PO SCH ×2 (09:21→17:02)
[2018-03-23] MEDS: BUDESONIDE/FORMOTEROL 80-4.5 MCG 60 PUFF/6.9 GM MDI IH SCH ×2 (09:21→23:17)
[2018-03-23] MEDS: BUSPIRONE HCL 10 MG TABLET PO SCH ×2 (09:21→23:16)
[2018-03-23] MEDS: NICOTINE 21 MG/24 HR PATCH.TD24 TD SCH (09:21)
[2018-03-23] MEDS: DIGOXIN 0.125 MG TABLET PO SCH (12:27)
--- NOTE | 2018-03-23 15:06 | PDOC PROGRESS REPORT ---
Subjective Progress Note for:: 03/23/18 Subjective:: Feels like she is doing better. Denies palpitations at this time. Patient takes IV out and does not want it reinserted. No fever or chills, no chest pain or shortness of breath. Daughter at bedside. Reason For Visit: SVT, COPD EXACERBATION, TOBACCO Physical Exam Vital Signs: Temp Pulse Resp BP Pulse Ox 98.3 F 74 16 114/92 H 93 03/23/18 07:17 03/23/18 14:00 03/23/18 08:37 03/23/18 07:17 03/23/18 08:37 Intake & Output 03/22/18 03/23/18 03/24/18 06:59 06:59 06:59 Intake Total 774 1169 Balance 774 1169 Weight 85.6 kg 84.7 kg GEN: NAD, well-developed, well-nourished CV: RRR, NL S1S2 LUNGS: CTA bilaterally ABDOMEN Soft, NT, +BS EXTERMITIES: No e/c/c NEURO: Alert, oriented to name, hospital, knows the president. However she does not know the year or date. No acute weakness. Results Laboratory Results: 03/21/18 05:15 03/22/18 13:11 03/15/18 03/15/18 03/15/18 03:27 16:34 20:35 Creatine Kinase CK-MB (CK-2) 1.86 1.82 Troponin I 0.026 < 0.012 0.014 NT-Pro-B Natriuret Pep 03/16/18 03/16/18 03/16/18 02:21 02:21 02:21 Creatine Kinase 35 CK-MB (CK-2) 1.41 Troponin I 0.019 NT-Pro-B Natriuret Pep 279 03/19/18 03/19/18 13:00 13:00 Creatine Kinase 49 CK-MB (CK-2) 1.48 Troponin I 0.014 NT-Pro-B Natriuret Pep Impressions: Chest X-Ray 03/15/18 04:22 IMPRESSION: Mild cardiomegaly, unchanged from prior study. copyright 2010 [employer]- All Rights Reserved Assessment & Plan - Diagnosis (1) SVT (supraventricular tachycardia) Is this a current diagnosis for this admission?: Yes (2) Acute exacerbation of chronic obstructive airways disease Is this a current diagnosis for this admission?: Yes (3) Cognitive impairment Is this a current diagnosis for this admission?: Yes (4) Current everyday smoker Is this a current diagnosis for this admission?: Yes - Plan Summary Plan Summary: Patient has been transitioned to oral medications, including digoxin, metoprolol. Talked with the daughter who is willing to continue to care for patient at home. Possible discharge home in a.m. if patient heart rate c ontrolled/if stable. Patient counseled about smoking cessation.
[2018-03-23] MEDS: OXYCODONE-ACETAMINOPHEN 5-325 MG TABLET PO PRN (16:58)
[2018-03-23] MEDS ORDERED: METOPROLOL TARTRATE PF/INJ 5 MG/5 ML SDV IV ONE ×2 (18:52→19:45)
[2018-03-23] MEDS: HALOPERIDOL LACTATE INJ 5 MG/1 ML VIAL IV PRN (20:16)
[2018-03-24] MEDS: IPRATROPIUM BROMIDE 0.02% NEB 0.5 MG/2.5 ML AMPUL NEB SCH ×3 (00:30→17:09)
[2018-03-24] MEDS: LEVALBUTEROL HCL NEB 1.25 MG/3 ML AMPUL NEB SCH ×3 (00:30→17:09)
[2018-03-24] MEDS: DIVALPROEX SODIUM 250 MG TAB.SR.24H PO SCH ×2 (09:06→21:59)
[2018-03-24] MEDS: FLUTICASONE NASAL SPRAY 50 MCG/SPRY 120 SPRAY/16 GM NASL SCH ×2 (09:06→22:05)
[2018-03-24] MEDS: DIGOXIN 0.125 MG TABLET PO SCH (09:07)
[2018-03-24] MEDS: BUSPIRONE HCL 10 MG TABLET PO SCH ×2 (09:07→21:59)
[2018-03-24] MEDS: DOCUSATE SODIUM 100 MG CAPSULE PO SCH ×2 (09:08→18:02)
[2018-03-24] MEDS: METOPROLOL TARTRATE 100 MG TABLET PO SCH ×2 (09:08→21:59)
[2018-03-24] MEDS: NICOTINE 21 MG/24 HR PATCH.TD24 TD SCH (09:08)
[2018-03-24] MEDS: HALOPERIDOL LACTATE INJ 5 MG/1 ML VIAL IV PRN (09:09)
[2018-03-24] MEDS: BUDESONIDE/FORMOTEROL 80-4.5 MCG 60 PUFF/6.9 GM MDI IH SCH ×2 (09:09→22:04)
--- NOTE | 2018-03-24 18:38 | PDOC PROGRESS REPORT ---
Subjective Progress Note for:: 03/24/18 Subjective:: Feels like she is doing better. Denies palpitations at this time and wants to go home. Nurse reports patient with episodes of SVT still 180s last night and this morning. Patient with dementia. She variably follow commands or comply with medications. No fever or chills, no chest pain or shortness of breath. She had digoxin added to her medications yesterday. She is also on metoprolol IV 100 mg twice daily and Dr. Parker is following. Reason For Visit: SVT, COPD EXACERBATION, TOBACCO Physical Exam Vital Signs: Temp Pulse Resp BP Pulse Ox 98.0 F 150 H 18 108/54 L 95 03/24/18 15:56 03/24/18 15:56 03/24/18 15:56 03/24/18 15:56 03/24/18 15:56 Intake & Output 03/23/18 03/24/18 03/25/18 06:59 06:59 06:59 Intake Total 1169 877 450 Balance 1169 877 450 Weight 84.7 kg 84.5 kg GEN: NAD, well-developed, well-nourished CV: RRR, NL S1S2 LUNGS: CTA bilaterally ABDOMEN Soft, NT, +BS EXTERMITIES: No e/c/c NEURO: Alert, oriented to name, hospital, knows the president. However she does not know the year or date. No acute weakness. Results Laboratory Results: 03/21/18 05:15 03/22/18 13:11 03/15/18 03/15/18 03/15/18 03:27 16:34 20:35 Creatine Kinase CK-MB (CK-2) 1.86 1.82 Troponin I 0.026 < 0.012 0.014 NT-Pro-B Natriuret Pep 03/16/18 03/16/18 03/16/18 02:21 02:21 02:21 Creatine Kinase 35 CK-MB (CK-2) 1.41 Troponin I 0.019 NT-Pro-B Natriuret Pep 279 03/19/18 03/19/18 13:00 13:00 Creatine Kinase 49 CK-MB (CK-2) 1.48 Troponin I 0.014 NT-Pro-B Natriuret Pep Impressions: Chest X-Ray 03/15/18 04:22 IMPRESSION: Mild cardiomegaly, unchanged from prior study. copyright 2010 [employer]- All Rights Reserved Assessment & Plan - Diagnosis (1) SVT (supraventricular tachycardia) Is this a current diagnosis for this admission?: Yes (2) Acute exacerbation of chronic obstructive airways disease Is this a current diagnosis for this admission?: Yes (3) Cognitive impairment Is this a current diagnosis for this admission?: Yes (4) Current everyday smoker Is this a current diagnosis for this admission?: Yes - Plan Summary Plan Summary: Patient has been transitioned to oral medications, including digoxin, metoprolol for SVT. Daughter informed me she is willing to continue to care for patient at home. We will continue metoprolol and digoxin for now. Check digoxin level in a.m. Please check with tiltrotor crew chief about adding other medications, perhaps calcium channel wan if BPs will tolerate, if patient has recurrent SVTs.
[2018-03-24] MEDS ORDERED: HALOPERIDOL 1 MG TABLET PO PRN (21:54)
[2018-03-24] MEDS ORDERED: HALOPERIDOL 1 MG TABLET ONE (21:57)
[2018-03-24] MEDS ORDERED: NORMAL SALINE 1000 ML 1,000 ML IV PRN (22:00)
[2018-03-25] MEDS: OXYCODONE-ACETAMINOPHEN 5-325 MG TABLET PO PRN
[2018-03-25] MEDS: LEVALBUTEROL HCL NEB 1.25 MG/3 ML AMPUL NEB SCH ×2 (00:49→08:27)
[2018-03-25] MEDS: IPRATROPIUM BROMIDE 0.02% NEB 0.5 MG/2.5 ML AMPUL NEB SCH ×2 (00:49→08:27)
[2018-03-25] MEDS: BUDESONIDE/FORMOTEROL 80-4.5 MCG 60 PUFF/6.9 GM MDI IH SCH (10:05)
[2018-03-25] MEDS: FLUTICASONE NASAL SPRAY 50 MCG/SPRY 120 SPRAY/16 GM NASL SCH (10:05)
[2018-03-25] MEDS: NICOTINE 21 MG/24 HR PATCH.TD24 TD SCH (10:05)
[2018-03-25] MEDS: DIVALPROEX SODIUM 250 MG TAB.SR.24H PO SCH (10:06)
[2018-03-25] MEDS: BUSPIRONE HCL 10 MG TABLET PO SCH (10:06)
[2018-03-25] MEDS: DOCUSATE SODIUM 100 MG CAPSULE PO SCH (10:06)
[2018-03-25] MEDS: METOPROLOL TARTRATE 100 MG TABLET PO SCH (10:06)
[2018-03-25] MEDS: DIGOXIN 0.125 MG TABLET PO SCH (10:07)
[2018-03-25] MEDS ORDERED: IPRATROPIUM BROMIDE 0.02% NEB 0.5 MG/2.5 ML AMPUL NEB PRN (14:24)
[2018-03-25] MEDS ORDERED: LEVALBUTEROL HCL NEB 1.25 MG/3 ML AMPUL NEB PRN (14:25)
--- NOTE | 2018-03-25 14:59 | PDOC DISCHARGE SUMMARY ---
General - Admit/Disc Date/PCP Admission Date/Primary Care Provider: 03/15/18 05:24 Discharge Date: 03/25/18 - Discharge Diagnosis (1) SVT (supraventricular tachycardia) Is this a current diagnosis for this admission?: Yes (2) V-tach Is this a current diagnosis for this admission?: Yes (4) Cognitive impairment Is this a current diagnosis for this admission?: Yes - Additional Information Resuscitation Status: Full Code Discharge Diet: As Tolerated Discharge Activity: Activity As Tolerated Prescriptions: Albuterol Sulfate [Proair HFA Inhalation Aerosol 8.5 gm MDI] 1 puff IH Q4 PRN #1 mdi PRN Reason: Budesonide/Formoterol Fumarate [Symbicort HFA 80-4.5 mcg Inhaler 6.9 gm] 2 puff IH Q12 #1 inhaler Buspirone HCl [Buspar 10 mg Tablet] 5 mg PO Q12 #60 tablet Digoxin [Lanoxin 0.125 mg Tablet] 0.125 mg PO DAILY #30 tablet Divalproex Sodium [Depakote ER 250 mg Tablet] 250 mg PO Q12 #60 tab.sr.24h Metoprolol Tartrate [Lopressor 100 mg Tablet] 100 mg PO Q12 #60 tablet Home Medications: Albuterol Sulfate [Proair HFA Inhalation Aerosol 8.5 gm MDI] 1 puff IH Q4 PRN #1 mdi 03/25/18 Budesonide/Formoterol Fumarate [Symbicort HFA 80-4.5 mcg Inhaler 6.9 gm] 2 puff IH Q12 #1 inhaler 03/25/18 Buspirone HCl [Buspar 10 mg Tablet] 5 mg PO Q12 #60 tablet 03/25/18 Digoxin [Lanoxin 0.125 mg Tablet] 0.125 mg PO DAILY #30 tablet 03/25/18 Divalproex Sodium [Depakote ER 250 mg Tablet] 250 mg PO Q12 #60 tab.sr.24h 03/25/18 Metoprolol Tartrate [Lopressor 100 mg Tablet] 100 mg PO Q12 #60 tablet 03/25/18 Nicotine [Nicoderm 21 mg/24 Hr Transderm Patch] 1 each TD DAILY patch.[id number] History of Present Illness History of Present Illness: BILL FERNANDEZ is a 72 year old female with a past medical history of COPD, chronic bronchitis, tobacco Dependence and dementia. Patient presents to the emergency department with shortness of breath and found to be in SVT with intermittent runs of V. tach. She is placed on amiodarone resulting in conversion to normal sinus rhythm. She denies chest pain nausea vomiting or diaphoresis. She has baseline dementia but socially appropriate however unable to recall details regarding recent medications or inhaler use. She has an unremarkable workup otherwise with exception to leukocytosis of 14 but is on prednisone. Hospital Course Hospital Course: Patient received IV amiodarone then switched to IV Cardizem. She was seen by cardiology. Echocardiogram shows normal ejection fraction. She then was switched to IV metoprolol and then switched to oral metoprolol and digoxin. She is currently in sinus rhythm. She is stable for discharge. She lives with her daughter. Physical Exam Vital Signs: Temp Pulse Resp BP Pulse Ox 97.5 F 79 18 129/78 H 95 03/25/18 11:01 03/25/18 14:00 03/25/18 11:01 03/25/18 11:01 03/25/18 11:01 Intake & Output 03/24/18 03/25/18 03/26/18 06:59 06:59 06:59 Intake Total 877 1075 625 Balance 877 1075 625 Weight 186 lb 4.65 oz 187 lb 6.287 oz 187 lb 6.287 oz General appearance: PRESENT: no acute distress, cooperative Head exam: PRESENT: atraumatic, normocephalic Eye exam: PRESENT: EOMI. ABSENT: conjunctival injection Mouth exam: PRESENT: moist, neck supple Neck exam: ABSENT: meningismus, tenderness Respiratory exam: PRESENT: clear to auscultation diann. ABSENT: accessory muscle use Cardiovascular exam: PRESENT: RRR Pulses: PRESENT: normal radial pulses GI/Abdominal exam: PRESENT: normal bowel sounds, soft. ABSENT: mass, tenderness Rectal exam: PRESENT: deferred Neurological exam: PRESENT: alert, awake Psychiatric exam: ABSENT: agitated, anxious Results Laboratory Results: 03/21/18 05:15 03/22/18 13:11 03/15/18 03/15/18 03/15/18 03:27 16:34 20:35 Creatine Kinase CK-MB (CK-2) 1.86 1.82 Troponin I 0.026 < 0.012 0.014 NT-Pro-B Natriuret Pep 03/16/18 03/16/18 03/16/18 02:21 02:21 02:21 Creatine Kinase 35 CK-MB (CK-2) 1.41 Troponin I 0.019 NT-Pro-B Natriuret Pep 279 03/19/18 03/19/18 13:00 13:00 Creatine Kinase 49 CK-MB (CK-2) 1.48 Troponin I 0.014 NT-Pro-B Natriuret Pep Impressions: Chest X-Ray 03/15/18 04:22 IMPRESSION: Mild cardiomegaly, unchanged from prior study. copyright 2010 [employer]- All Rights Reserved Qualifiers - * PATIENT BEING DISCHARGED WITH ANY OF THE FOLLOWING DIAGNOSIS: No
[2018-03-25 16:51] VITALS: BP 121/72
== END 2018-03-25 17:30 | disposition home or self-care (01) | DRG 191 ==
LOC: ER 03:16 → EH 05:24 → OBSVTOIN 05:24 → 3S 06:27
PROVIDERS: ADMIT Internal Medicine; ATTEND Internal Medicine
DX: J44.1 Chronic obstructive pulmonary disease with (acute) exacerbation (principal); I47.1 Supraventricular tachycardia; Z78.1 Physical restraint status; F03.90 Unspecified dementia, unspecified severity, without behavioral disturbance, psychotic disturbance, mood disturbance, and anxiety; I48.91 Unspecified atrial fibrillation; I10 Essential (primary) hypertension; F32.9 Major depressive disorder, single episode, unspecified; E66.9 Obesity, unspecified; G31.84 Mild cognitive impairment of uncertain or unknown etiology; F17.210 Nicotine dependence, cigarettes, uncomplicated; Z82.49 Family history of ischemic heart disease and other diseases of the circulatory system; Z79.52 Long term (current) use of systemic steroids; Z68.34 Body mass index [BMI] 34.0-34.9, adult; Z88.0 Allergy status to penicillin; Z88.2 Allergy status to sulfonamides
CPT/HCPCS: 36415; 71045; 80048; 80053; 80069; 81001; 82550; 82553; 82607; 83735; 83880; 84132; 84443; 84484; 85025; 87040; 93005; 93010; 93306; 94667; 94668; 96365; 96366; 99285; J0282; J1160; J1630; J2060; J3486; J3490; J7060

== ENCOUNTER → 2019-02-06 | Outpatient (CLI) | payer MEDICARE | LOC: RAD 12:35 | PROVIDERS: ATTEND Physician Assistant | DX: F03.90 Unspecified dementia, unspecified severity, without behavioral disturbance, psychotic disturbance, mood disturbance, and anxiety (principal); Z53.8 Procedure and treatment not carried out for other reasons ==